=== PATIENT | male | born 1960 | race Caucasian/White ===

== ENCOUNTER 2020-12-08 01:24 | Outpatient (CLI) | payer OTHER, SELFPAY ==
[2020-12-08 19:22] LABS: SARS-CoV-2 RNA PCR Negative
== END 2020-12-08 01:25 | disposition home or self-care (01) ==
LOC: ANHCOVIDDT 01:24
PROVIDERS: PCP Internal Medicine; Visit Provider Internal Medicine Gastroenterology
DX: Z01.812 Encounter for preprocedural laboratory examination (principal); Z20.822 Contact with and (suspected) exposure to COVID-19
CPT/HCPCS: C9803; U0003; U0005

== ENCOUNTER 2020-12-11 02:34 | Day surgery (SDC) | payer OTHER, SELFPAY ==
[2020-12-03 11:11] VITALS: BMI 30.2
[2020-12-11 08:28] VITALS: BP 158/101; PULSE 83; RESP 20; TEMP 36.6; O2SAT 97; BMI 30.4
[2020-12-11] MEDS: LACTATED RINGERS 1,000 ML 150 ML IV CONT (08:45)
--- NOTE | 2020-12-11 09:00 | WPDANESEPPF ---
Anes - Initial Pre Proc Eval Procedure: Operation Date: 12/11/20 09:30 Proposed Procedures p Screening Colonoscopy - Noble Brown MD Date/Time: 12/11/20 09:00 Surgeon: Noble Brown MD Pre Op Diagnosis: neoplasm screening Patient Data Age: 60 Gender: M Height: 5 ft 6 in Weight: 85.5 kg Last Vital Signs Temp 97.9 F 12/11/20 08:28 Pulse 83 12/11/20 08:28 Resp 20 12/11/20 08:28 BP 158/101 H 12/11/20 08:28 Pulse Ox 97 12/11/20 08:28 Allergies Allergy/AdvReac Type Severity Reaction Status Date / Time No Known Allergies Allergy Verified 12/11/20 08:27 Home Medications Medication Instructions Recorded Confirmed Type syringe with needle 3 mL 25 gauge #100 each 11/06/19 11/25/20 Rx x 1 aspirin 81 mg tablet,delayed 81 mg PO DAILY 11/18/19 12/03/20 History release cholecalciferol (vitamin D3) 25 25 mcg PO DAILY 11/18/19 12/03/20 History mcg (1,000 unit) capsule vitamin B complex 1 tablet PO DAILY 11/18/19 12/03/20 History ascorbic acid (vitamin C) 1,000 mg 1 gm PO DAILY 04/06/20 12/03/20 History tablet losartan 50 mg tablet 50 mg PO DAILY #90 tablet 04/06/20 12/03/20 Rx testosterone cypionate 200 mg/mL 100 mg IM WEEKLY #2.5 ml 07/13/20 12/03/20 Rx intramuscular oil atorvastatin 10 mg tablet 10 mg PO DAILY #90 tablet 10/12/20 12/03/20 Rx sertraline 100 mg tablet 100 mg PO DAILY #90 tablet 10/12/20 12/03/20 Rx hydrochlorothiazide 12.5 mg capsule 12.5 mg PO DAILY #90 cap 10/19/20 12/03/20 Rx tamsulosin 0.4 mg capsule 0.4 mg PO DAILY #90 cap 11/25/20 12/03/20 Rx zolpidem 10 mg tablet 10 mg PO ONCE #30 tablet 11/25/20 12/03/20 Rx famotidine 20 mg tablet 20 mg PO BID #60 tablet 11/26/20 12/03/20 Rx Patient hx anesthesia problems: none Family hx anesthesia problems: none PMFSH Past Medical History Medical History (Updated 11/26/20 @ 08:43 by TOÑITO Yun) Chicken pox Hematochezia HLD (hyperlipidemia) HTN (hypertension) Long-term current use of testosterone cypionate Measles Testicular hypofunction Surgical History Surgical History (Updated 02/10/20 @ 10:27 by Tonia Newby) History of surgery on arm Family History Family History Mother Patient's mother is in good health Father Hypertension Social History Social History Smoking status: Never smoker Alcohol intake: current Drinks per week: 3 Substance use type: does not use Living arrangements: with family Spiritual care concerns: No Anes - Eval Final PreProcedure Day of Procedure 12/11/20 09:00 Patient weight: overweight Heart: regular rate and rhythm Lungs: clear to auscultation Airway: Mallampati scale class II Neurological: alert and oriented Last oral intake: >/= 8 hours ASA classification: II Emergent: no Anesthetic plan: proceed Anesthesia type and monitoring: general GIVS and standard monitoring Informed Consent: The patient's anesthetic plan and its attendant risks and benefits were discussed with the patient/family/POA. Questions were solicited and answers provided to the satisfaction of the patient/family/POA.
--- NOTE | 2020-12-11 09:42 | PM.HPGS ---
History of Present Illness History of Present Illness Consent: Risks, benefits, and alternatives have been discussed and questions answered. Patient agrees to proceed with procedure. Chief complaint: neoplasm screening Narrative: Michael Bearden is a 60 year old male here for screening colonoscopy, last one about 12 years ago. Review of Systems Constitutional: Constitutional: Denies headache(s) and Denies weakness Eyes: Eyes: Denies blurry vision ENT: Reports Normal hearing present, Denies headache(s) and Denies neck pain Cardiovascular: Cardiovascular: Denies chest pain and Denies dyspnea Respiratory: Respiratory: Denies dyspnea Gastrointestinal: Gastrointestinal: Reports no additional gastrointestinal complaints Genitourinary: Genitourinary: Denies dysuria Musculoskeletal: Musculoskeletal: Denies neck pain Integumentary/Breasts: Skin/Breast: Denies dry skin Neurologic: Reports Normal hearing present, Denies headache(s) and Denies weakness Psychiatric: Psychiatric: Denies anxiety Endocrine: Endocrine: Denies change in body appearance Hematologic/Lymphatic: Hematologic/Lymphatic: Denies easy bleeding Allergic/Immunologic: Allergic/Immunologic: Denies urticaria PMFSH Past Medical History Medical History (Updated 11/26/20 @ 08:43 by LEÓN YunP-C) Chicken pox Hematochezia HLD (hyperlipidemia) HTN (hypertension) Long-term current use of testosterone cypionate Measles Testicular hypofunction Surgical History Surgical History (Updated 02/10/20 @ 10:27 by Tonia Newby) History of surgery on arm Family History Family History Mother Patient's mother is in good health Father Hypertension Social History Social History Smoking status: Never smoker Alcohol intake: current Drinks per week: 3 Substance use type: does not use Living arrangements: with family Spiritual care concerns: No Meds Home Medications and Allergies Home Medications Medication Instructions Recorded Confirmed Type syringe with needle 3 mL 25 gauge #100 each 11/06/19 11/25/20 Rx x 1 aspirin 81 mg tablet,delayed 81 mg PO DAILY 11/18/19 12/03/20 History release cholecalciferol (vitamin D3) 25 25 mcg PO DAILY 11/18/19 12/03/20 History mcg (1,000 unit) capsule vitamin B complex 1 tablet PO DAILY 11/18/19 12/03/20 History ascorbic acid (vitamin C) 1,000 mg 1 gm PO DAILY 04/06/20 12/03/20 History tablet losartan 50 mg tablet 50 mg PO DAILY #90 tablet 04/06/20 12/03/20 Rx testosterone cypionate 200 mg/mL 100 mg IM WEEKLY #2.5 ml 07/13/20 12/03/20 Rx intramuscular oil atorvastatin 10 mg tablet 10 mg PO DAILY #90 tablet 10/12/20 12/03/20 Rx sertraline 100 mg tablet 100 mg PO DAILY #90 tablet 10/12/20 12/03/20 Rx hydrochlorothiazide 12.5 mg capsule 12.5 mg PO DAILY #90 cap 10/19/20 12/03/20 Rx tamsulosin 0.4 mg capsule 0.4 mg PO DAILY #90 cap 11/25/20 12/03/20 Rx zolpidem 10 mg tablet 10 mg PO ONCE #30 tablet 11/25/20 12/03/20 Rx famotidine 20 mg tablet 20 mg PO BID #60 tablet 11/26/20 12/03/20 Rx Allergies Allergy/AdvReac Type Severity Reaction Status Date / Time No Known Allergies Allergy Verified 12/11/20 08:27 Vital Signs Vital Signs - 24 hr 12/11/20 08:28 Temperature 97.9 F Pulse Rate 83 Respiratory Rate 20 Blood Pressure 158/101 H Pulse Oximetry 97 Exam Const: General: comfortable and no acute distress HENMT: General nose exam: Normal nares present Eyes: General: appearance normal, both eyes and all related structures Neck: Neck: no JVD Resp: Auscultation: clear to auscultation bilaterally Cardio: Rate: regular rate Rhythm: regular rhythm GI: Inspection: non-distended GI Palp: Yes Soft to palpation Skin: General skin exam: normal color Neuro: General: gait normal Speech: normal speech Extrem: General: normal to inspection Psych:
[2020-12-11 10:03] VITALS: BP 126/82; PULSE 71; RESP 14; O2SAT 97
[2020-12-11 10:13] VITALS: BP 122/87; PULSE 69; RESP 15; O2SAT 96
[2020-12-11 10:23] VITALS: BP 138/100; PULSE 66; RESP 15; O2SAT 97
== END 2020-12-11 10:35 | disposition home or self-care (01) ==
PROVIDERS: PCP Internal Medicine; Visit Provider Internal Medicine Gastroenterology
PROC: 0DJD8ZZ Inspection of Lower Intestinal Tract, Via Natural or Artificial Opening Endoscopic (ICD-10-PCS; CPT 45378; principal; 2020-12-11 09:30)
DX: Z12.11 Encounter for screening for malignant neoplasm of colon (principal); K57.30 Diverticulosis of large intestine without perforation or abscess without bleeding; K64.8 Other hemorrhoids; Z79.82 Long term (current) use of aspirin; K92.1 Melena; E78.5 Hyperlipidemia, unspecified; I10 Essential (primary) hypertension; Z79.890 Hormone replacement therapy
CPT/HCPCS: 45378; C9803; J2704; J7120; U0003; U0005

== ENCOUNTER 2021-04-06 18:52 | Emergency (ER) | payer OTHER, SELFPAY ==
--- NOTE | ~2021-04-06 | CT_ITS ---
EXAMINATION: CT abdomen pelvis w con EXAM DATE: 04/06/2021 21:29 INDICATION: abdominal pain, fever, n/v/d . TECHNIQUE: Spiral CT of the abdomen and pelvis was performed following intravenous injection of 100 m L Omnipaque 350. Axial, coronal and sagittal images of the abdomen and pelvis were reviewed. The do se-length product (DLP) for this examination was 587.75 mGy-cm. The exposure was tailored according to patient size (auto mA exposure control), and iterative reconstruction (ASIR) was used as additiona l dose reduction technique. There is no prior study for comparison. FINDINGS: The liver, spleen, adrenal glands and pancreas are unremarkable. Gallbladder is unremarkab le. No biliary obstruction. Portal and splenic veins are patent. Kidneys enhance symmetrically. T here is no hydronephrosis. Mild prostatomegaly. The bladder is unremarkable. There is no retroper itoneal or pelvic lymphadenopathy. There is mild scattered arteriosclerotic disease. Small umbilica l fat-containing hernia. The appendix is normal. There is mild to moderate sigmoid predominant colonic diverticulosis. There is no adjacent inflammatory change to suggest diverticulitis. There is small sliding gastroesophageal hiatal hernia. There is expected amount of colonic stool. No free intraperitoneal gas. The hear t is normal in size. There are no pericardial or pleural effusions. The lung bases are unremarkable . There are no osteoblastic or osteolytic lesions identified. IMPRESSION: 1. No acute intra-abdominal findings. 2. Small hiatal hernia. 3. Small umbilical hernia. 4. Mild prostatomegaly. Reviewed, dictated and finalized at location A.
[2021-04-06 19:04] VITALS: BP 126/104; PULSE 125; RESP 18; TEMP 37.2; O2SAT 95
[2021-04-06 19:16] LABS: Basophils Percent Auto 0.3 % (0.2-1.2); Eosinophils Absolute Auto 0.1 K/mm3 (0-0.3); Eosinophils Percent Auto 1.1 % (0-4.4); Hematocrit 48.4 % (42.0-52.0); Hemoglobin 16.8 g/dL (14.0-18.0); Immature Granulocyte Absolute 0.02 K/mm3 (0.00-0.031); Immature Granulocyte Percent A 0.2 % (0-0.5); Lymphocytes Absolute Auto 1.09 K/mm3 (0.9-3.2); Lymphocytes Percent Auto 9.5 % (18.3-44.2); Mean Corpuscular HGB Conc 34.7 g/dl (32-36); Mean Corpuscular Hemoglobin 31.4 pg (26-34); Mean Corpuscular Volume 90.5 fl (80-100); Mean Platelet Volume 9.1 fl (7.4-10.4); Monocytes Absolute Auto 0.9 K/mm3 (0.1-0.6); Monocytes Percent Auto 7.4 % (2.6-8.5); Neutrophils Absolute Auto 9.4 K/mm3 (1.3-6.7); Neutrophils Percent Auto 81.5 % (45.5-73.1); Platelet Count Result 253 k/mm3 (150-375); Red Blood Count 5.35 M/mm3 (4.6-6.20); Red Cell Distribution Width 12.2 % (11.5-14.5); White Blood Count 11.5 K/mm3 (4.5-10.0)
[2021-04-06 19:25] LABS: Alanine Aminotransferase 25 U/L (4-50); Albumin Level 4.2 g/dL (3.5-5.1); Alkaline Phosphatase 51 U/L (38-126); Anion Gap 9 mmol/L (8-16); Aspartate Amino Transferase 28 U/L (17-59); Blood Urea Nitrogen 16 mg/dL (9-20); Carbon Dioxide 28 mmol/L (22-30); Chloride 102 mmol/L (98-107); Estimated CRCL calculation 53 ml/min; Estimated Glomerular Filt Rate 56; Glucose 103 mg/dL (75-110); Lipase 39 U/L (23-300); Potassium 3.8 mmol/L (3.4-5.0); Sodium 139 mmol/L (137-145)
[2021-04-06 20:23] VITALS: PULSE 104
--- NOTE | 2021-04-06 20:35 | ED.NAVMDI ---
HPI - Nausea/Vomiting/Diarrhea General Chief complaint: Nausea/Vomiting/Diarrhea Stated complaint: vomiting, diarrhea Time Seen by Provider: 04/06/21 20:17 Source: patient Mode of arrival: ambulatory Limitations: no limitations History of Present Illness HPI Narrative: Dhara is a 61 year old male who presents with abdominal pain, nausea, vomiting, diarrhe, fever and chills x 1 day. He reports no exposure to Covid and Pfizer vaccine x 2. He denies chest pain, cough, or shortness of breath. He reports unable to keep down food or fluids . He denies significant medical history. He denies taking otc medications for relief. MD elicited complaint: nausea, vomiting, diarrhea and abdominal pain Related Data Home Medications Medication Instructions Recorded Confirmed aspirin 81 mg tablet,delayed 81 mg PO DAILY 11/18/19 03/01/21 release cholecalciferol (vitamin D3) 25 25 mcg PO DAILY 11/18/19 03/01/21 mcg (1,000 unit) capsule vitamin B complex 1 tablet PO DAILY 11/18/19 03/01/21 ascorbic acid (vitamin C) 1,000 mg 1 gm PO DAILY 04/06/20 03/01/21 tablet tadalafil 5 mg tablet 5 mg PO DAILY 03/01/21 03/01/21 Allergies Allergy/AdvReac Type Severity Reaction Status Date / Time No Known Allergies Allergy Verified 12/11/20 08:27 Review of Systems Review of Systems: Narrative: CONSTITUTIONAL: Denies fever, chills, or sweats. EYES: Denies visual changes, redness, or discharge. ENT: Denies rhinorrhea, congestion, sore throat, or otalgia. CARDIOVASCULAR: Denies chest pain, palpitations, or edema. RESPIRATORY: Denies cough or dyspnea. GASTROINTESTINAL: Reports abdominal pain, nausea, vomiting, and diarrhea. GENITOURINARY: Denies dysuria or hematuria. SKIN: Denies rash or itching. MUSCULOSKELETAL: Denies back pain, joint pain, or myalgia. NEUROLOGIC: Denies headache, numbness, dizziness, or weakness. PSYCHIATRIC: Denies anxiety or depression. [facility] Past Medical History Medical History Chicken pox Hematochezia HLD (hyperlipidemia) HTN (hypertension) Long-term current use of testosterone cypionate Measles Testicular hypofunction Surgical History Surgical History History of surgery on arm Family History Family History Mother Patient's mother is in good health Father Hypertension Social History Social History Smoking status: Never smoker Alcohol intake: current Drinks per week: 3 Substance use type: does not use Gender identity (if verbalized by the patient): Male Spiritual care concerns: No Comments At the time of signature, I have reviewed and agree with nursing past medical, surgical, social, and family history unless otherwise noted. Please see nursing chart for further information. There is no relevant family history pertinent to the presenting complaint. Exam Narrative: Exam Narrative: GENERAL:Ill appearing and uncomfortable HEAD: Normocephalic, atraumatic. EYES: EOMI. No redness or drainage. ENT: Mucous membranes pink and moist. NECK: AROM. Supple. No lymphadenopathy. CHEST: No respiratory distress. Clear to auscultation. HEART: Regular rate and rhythm. No murmur appreciated. Normal peripheral pulses. GI: Soft, nontender without rebound, or guarding. No distention. Bowel sounds normal in all quadrants. MUSCULOSKELETAL: No bony tenderness. EXTREMITIES: Normal range of motion. No edema. SKIN: Warm, dry, no rash. NEURO: No focal deficits. Alert and oriented x3. Gait steady. PSYCH: Normal affect. No signs of depression or anxiety. Course Reevaluation(s) Reevaluation #1: Patient reports he is feeling much better at this time. Denies nausea. VSS. Patient requesting discharge. Date: 04/06/21 Time: 21:55 Vital Signs Vital signs: Vital Signs Temperature 37.2
[2021-04-06 20:40] VITALS: PULSE 91; RESP 14
[2021-04-06] MEDS: SODIUM CHLORIDE 0.9% IV 1,000 ML 999 ML IV CONT (20:43)
[2021-04-06] MEDS: ONDANSETRON INJ 4 MG/2 ML VIAL IV PUSH (20:43)
[2021-04-06 21:09] VITALS: PULSE 97; RESP 20
--- NOTE | 2021-04-06 21:16 | PC.NURSE ---
patient reminded that urine specimen was needed. refused straight cath. urinal at bedside
[2021-04-06 21:30] VITALS: BP 138/78; PULSE 93; RESP 14; O2SAT 98
[2021-04-06 21:52] LABS: Add Urine Microscopic? YES; Amorphous Sediment Urine Few; Appearance Urine Cloudy (Clear); Bacteria Urine Trace /hpf; Bilirubin Urine Negative (Negative); Blood Urine Negative (Negative); Color Urine Amber (Yellow); Glucose Urine UA Negative (Negative); Ketones Urine Negative (Negative); Leukocyte Esterase Ur Negative LEU/UL (Negative); Mucus Urine Rare /lpf; Nitrate Urine Negative (Negative); Protein Urine 1+ mg/dL (Negative); RBC Urine 0-2 /hpf (0-2); Specific Grav Ur 1.027 (1.001-1.035); Squamous Epithelial Cell Urine Rare /hpf (Few); WBC Urine 0-3 /hpf
[2021-04-06 22:09] VITALS: BP 112/78; PULSE 80; RESP 18; O2SAT 99
== END 2021-04-06 22:10 | disposition home or self-care (01) ==
PROVIDERS: Emergency Medicine; Emergency Provider Nurse Practitioner; PCP Internal Medicine
DX: R11.2 Nausea with vomiting, unspecified (principal); R19.7 Diarrhea, unspecified; E78.5 Hyperlipidemia, unspecified; I10 Essential (primary) hypertension; E29.1 Testicular hypofunction; Z79.82 Long term (current) use of aspirin
CPT/HCPCS: 36415; 74177; 80053; 81001; 83690; 85025; 96361; 96374; 99284; J2405; J7030; Q9967

== ENCOUNTER 2021-10-07 11:05 | Outpatient (CLI) | payer OTHER, SELFPAY ==
--- NOTE | ~2021-10-07 | XR_ITS ---
EXAMINATION: XR chest 2V 10/07/2021 11:16 INDICATION: Cardiomegaly. CHF. PROCEDURE: 2 view chest COMPARISON: No prior studies for comparison. FINDINGS: The lungs are clear. The cardiomediastinal silhouette is within normal limits. There are no pleural effusions. There is no pneumothorax suspected. Low lung volumes with crowding of the pul monary vessels. IMPRESSION: 1: NO ACUTE CARDIOPULMONARY DISEASE. Reviewed, dictated and finalized at location A. 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
== END 2021-10-07 11:06 | disposition home or self-care (01) ==
LOC: ANHIMG 11:09
PROVIDERS: PCP Internal Medicine; Visit Provider Clinical Nurse Specialist
DX: I51.7 Cardiomegaly (principal)
CPT/HCPCS: 71046

== ENCOUNTER 2022-02-04 15:52 | Outpatient (CLI) | payer OTHER, SELFPAY ==
--- NOTE | ~2022-02-04 | US_ITS ---
EXAMINATION: US carotid duplex BI DATE: 02/04/2022 16:39 INDICATION: Stroke TECHNIQUE: Grayscale, color Doppler, and pulsed Doppler images of the cervical carotid arteries were obtained. The degree of vessel stenosis is placed in one of the following categories: normal, <50%, 5 0-69%, >=70% but less than near-occlusion, near-occlusion, or total occlusion. Note that percent sten osis relative to normal distal artery lumen diameter is indirectly measured from velocity measurement s as described by Jose Luis, et al. Radiology 2003; 229:340-346. COMPARISON: None. FINDINGS: RIGHT: The right common carotid artery (CCA) peak systolic velocity (PSV) is 92 cm/s. The right internal car otid artery (ICA) PSV is 73 cm/s. The right ICA end-diastolic velocity (EDV) is 25 cm/s. The right IC A/CCA PSV ratio is 0.8. Grayscale and color Doppler images yield an estimate of <50% diameter reducti on from plaque in the ICA. The external carotid artery (ECA) PSV is 133 cm/s. There is antegrade flow in the right vertebral artery. LEFT: The left CCA PSV is 113 cm/s. The left ICA PSV is 54 cm/s. The left ICA EDV is 25 cm/s. The left ICA/ CCA PSV ratio is 0.5. Grayscale and color Doppler images yield an estimate of <50% diameter reduction from plaque in the ICA. The ECA PSV is 100 cm/s. There is antegrade flow in the left vertebral arter y. IMPRESSION: 1. <50% stenosis in the right internal carotid artery. 2. <50% stenosis in the left internal carotid artery. Reviewed, dictated and finalized at location A. 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
== END 2022-02-04 15:53 | disposition home or self-care (01) ==
PROVIDERS: PCP Internal Medicine; Visit Provider Internal Medicine Cardiovascular Disease
DX: Z86.73 Personal history of transient ischemic attack (TIA), and cerebral infarction without residual deficits (principal); I65.23 Occlusion and stenosis of bilateral carotid arteries
CPT/HCPCS: 93880

== ENCOUNTER 2022-04-09 10:07 | Emergency (ER) | payer OTHER, SELFPAY ==
--- NOTE | 2022-04-09 10:10 | ED.GENADULT ---
HPI - General Adult General Chief complaint: Upper Respiratory Infection Stated complaint: congestion Time Seen by Provider: 04/09/22 10:10 Source: patient Mode of arrival: ambulatory Limitations: no limitations History of Present Illness HPI narrative: 62-year-old male patient presents to the [facility] with complaints of nasal congestion, runny nose and a cough for the past 6 days. Patient states that happen whenever he went over to his sister's house and she is got some issues with mold. Patient states he has been taking some [id number] Claritin and cough drops. Denies fevers, body aches or chills. Denies any chest pain, shortness of breath. Patient is fully vaccinated but is refusing a COVID test today. Patient states he is getting ready to travel to [place]. Related Data Home Medications Medication Instructions Recorded Confirmed aspirin 81 mg tablet,delayed 81 mg PO DAILY 11/18/19 01/24/22 release cholecalciferol (vitamin D3) 25 25 mcg PO DAILY 11/18/19 01/24/22 mcg (1,000 unit) capsule vitamin B complex 1 tablet PO DAILY 11/18/19 01/24/22 ascorbic acid (vitamin C) 1,000 mg 1 gm PO DAILY 04/06/20 01/24/22 tablet tadalafil 5 mg tablet 5 mg PO DAILY 03/01/21 01/24/22 Allergies Allergy/AdvReac Type Severity Reaction Status Date / Time No Known Allergies Allergy Verified 04/09/22 10:26 Review of Systems Review of Systems: CONSTITUTIONAL: Denies fever, chills, or sweats. EYES: Denies visual changes, redness, or discharge. ENT: Positive rhinorrhea, congestion, denies sore throat, or otalgia. CARDIOVASCULAR: Denies chest pain, palpitations, or edema. RESPIRATORY: Positive cough, denies dyspnea. GASTROINTESTINAL: Denies abdominal pain, nausea, vomiting, or diarrhea. GENITOURINARY: Denies dysuria or hematuria. SKIN: Denies rash or itching. MUSCULOSKELETAL: Denies back pain, joint pain, or myalgia. NEUROLOGIC: Denies headache, numbness, or weakness. PSYCHIATRIC: Denies anxiety or depression. [facility] Past Medical History Medical History Chicken pox Grade II diastolic dysfunction Hematochezia HLD (hyperlipidemia) HTN (hypertension) Long-term current use of testosterone cypionate Measles Testicular hypofunction Surgical History Surgical History History of surgery on arm Family History Family History Mother Patient's mother is in good health Father Hypertension Social History Social History Smoking status: Never smoker Alcohol intake: current Drinks per week: 3 Alcohol use details: occasional Substance use type: does not use Gender identity (if verbalized by the patient): Male Spiritual care concerns: No Comments At the time of my signature I agree with nursing past medical history, surgical, social, and family history. There is no relevant family history pertinent to the presenting complaint. Exam Narrative: GENERAL: Well-appearing, well-nourished, and in no acute distress. HEAD: Normocephalic, atraumatic. EYES: PERRLA and EOMI. ENT: Nares with slight erythema and edema no obstruction, no rhinorrhea or epistaxis. Mucous membranes moist. Posterior pharynx with no erythema, tonsillar lodgment, exudates or lesions present. There is some fluid and cloudiness noted behind bilateral TMs NECK: Supple. No lymphadenopathy CHEST: Clear to auscultation. No respiratory distress. Patient able talk in clear complete sentences. HEART: Regular rate and rhythm. No murmur heard. Normal peripheral pulses. ABDOMEN: Soft, nontender, nondistended, normal active bowel sounds. EXTREMITIES: Normal range of motion. No edema. SKIN: Warm, dry, no rash. NEURO: No focal deficits. Alert and oriented x3. Course Course Level of Care: Express Care Visit Vital Signs Vital signs:
[2022-04-09 10:20] VITALS: BP 123/74; PULSE 86; RESP 16; TEMP 36.2; O2SAT 97
== END 2022-04-09 11:04 | disposition home or self-care (01) ==
PROVIDERS: Emergency Provider Nurse Practitioner Family; PCP Internal Medicine
DX: J01.90 Acute sinusitis, unspecified (principal); E78.5 Hyperlipidemia, unspecified; I10 Essential (primary) hypertension
CPT/HCPCS: 99213; G0463

== ENCOUNTER → 2022-07-13 15:55 | Outpatient (CLI) | payer OTHER, SELFPAY ==
--- NOTE | ~2022-07-13 | XR_ITS ---
EXAMINATION: XR shoulder LT min 2V INDICATION: Left shoulder pain TECHNIQUE: Four views of the left shoulder are submitted. COMPARISON: None FINDINGS: Normal alignment. No fracture. There is moderate osteoarthritis of the acromioclavicular jose int and mild osteoarthritis of the glenohumeral joint. Soft tissues are unremarkable. IMPRESSION: 1. Osteoarthritis without acute osseous abnormality. Reviewed, dictated and finalized at location A.
== END ==
PROVIDERS: PCP Clinical Nurse Specialist; Visit Provider Clinical Nurse Specialist
DX: M19.012 Primary osteoarthritis, left shoulder (principal)
CPT/HCPCS: 73030

== ENCOUNTER 2022-07-13 16:11 | Outpatient (CLI) | payer OTHER, SELFPAY | END 2022-07-13 16:12 | disposition home or self-care (01) | LOC: ANHGOSHLAB 16:12 | PROVIDERS: PCP Clinical Nurse Specialist; Visit Provider Clinical Nurse Specialist | DX: R79.0 Abnormal level of blood mineral (principal) | CPT/HCPCS: 36415; 73030; 82728 ==

== ENCOUNTER → 2022-07-29 11:14 | Outpatient (CLI) | payer OTHER, SELFPAY ==
--- NOTE | ~2022-07-29 | US_ITS ---
EXAMINATION: US right upper quadrant DATE: 07/29/2022 11:46 INDICATION: Right upper quadrant pain TECHNIQUE: Multiple grayscale and Doppler ultrasound images of the abdomen were obtained. COMPARISON: CT, 04/06/2021 FINDINGS: The head and body of the pancreas are normal. The pancreatic tail is obscured by bowel gas. The liver is normal with normal echogenicity and echotexture. No surface nodularity. Normal hepatope luis armando flow in the main portal vein. The gallbladder is normal with no abnormal wall thickening, pericho lecystic fluid or stones. The normal common bile duct measures 2.5 mm. There was no sonographic Mayank y sign. IMPRESSION: 1. Normal sonographic study of the gallbladder. Reviewed, dictated and finalized at location A.
== END ==
PROVIDERS: PCP Internal Medicine; Visit Provider Clinical Nurse Specialist
DX: R10.11 Right upper quadrant pain (principal)
CPT/HCPCS: 76705

== ENCOUNTER 2022-08-15 07:35 | Outpatient (CLI) | payer OTHER, SELFPAY ==
--- NOTE | ~2022-08-15 | NM_ITS ---
EXAMINATION: NM hepatobiliary w pharm DATE: 08/15/2022 10:12 INDICATION: Right upper quadrant abdominal pain. COMPARISON: Ultrasound 07/29/2022 TECHNIQUE: 4.9 mCi Tc-99m mebrofenin (Choletec) was administered intravenously. Scintigraphic images of the abdomen were obtained for one hour. Then, 1.75 mcg sincalide (Kinevac) IV was administered, a nd imaging was continued for 30 minutes. FINDINGS: There is normal clearance of radiotracer from the blood pool. There is homogeneous tracer u ptake by the liver. Activity progresses to the bowel and gallbladder. Gallbladder ejection fraction (GBEF) was 49%. Note that most patients with gallbladder dysfunction have GBEF < 35%, which overlaps with the broad normal range of 10-90%. IMPRESSION: 1. Normal hepatobiliary scintigraphy. Reviewed, dictated and finalized at location A.
== END 2022-08-15 07:36 | disposition home or self-care (01) ==
PROVIDERS: PCP Internal Medicine; Visit Provider Clinical Nurse Specialist
DX: R10.11 Right upper quadrant pain (principal)
CPT/HCPCS: 78227; A9537; J2805

== ENCOUNTER → 2023-01-13 08:12 | Outpatient (CLI) | payer OTHER, SELFPAY ==
--- NOTE | ~2023-01-13 | XR_ITS ---
EXAMINATION: XR ankle LT min 3V DATE: 01/13/2023 08:33 INDICATION: Left ankle pain TECHNIQUE: Anteroposterior, lateral, mortise, and additional oblique view of the ankle were obtained. COMPARISON: None. FINDINGS: Bone alignment is normal. No fracture is identified. There is moderate osteoarthritis at th e talofibular joint. Posterior and plantar calcaneal enthesophytes are noted. There is mild soft tiss ue swelling of ankle. IMPRESSION: 1. No acute osseous abnormality. Reviewed, dictated and finalized at location B. 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
--- NOTE | ~2023-01-13 | XR_ITS ---
EXAMINATION: XR knee LT 2V DATE: 01/13/2023 08:33 INDICATION: Left knee pain TECHNIQUE: Two views of the left knee were obtained. COMPARISON: None. FINDINGS: Alignment is normal. No fracture or osteochondral lesion. There is mild tricompartmental os teoarthritis characterized by tiny marginal osteophytes. No joint effusion/synovitis. Soft tissues a re unremarkable. IMPRESSION: 1. Mild osteoarthritis without acute osseous abnormality. Reviewed, dictated and finalized at location B. 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
== END ==
PROVIDERS: PCP Clinical Nurse Specialist; Visit Provider Clinical Nurse Specialist
DX: M25.569 Pain in unspecified knee (principal); S99.919A Unspecified injury of unspecified ankle, initial encounter; M25.572 Pain in left ankle and joints of left foot; M17.12 Unilateral primary osteoarthritis, left knee
CPT/HCPCS: 73560; 73610

== ENCOUNTER 2023-02-21 11:03 | Emergency (ER) | payer OTHER, SELFPAY ==
[2023-02-21 11:10] VITALS: BP 145/94; PULSE 87; RESP 16; TEMP 36.7; O2SAT 97
--- NOTE | 2023-02-21 11:25 | ED.URI ---
HPI - URI/Sore Throat General Chief Complaint: Upper Respiratory Infection Stated Complaint: congestion,ear pain Time Seen by Provider: 02/21/23 11:22 Source: patient Mode of arrival: ambulatory Limitations: no limitations History of Present Illness HPI Narrative: Patient is a 63-year-old male that presents with congestion, sneezing, ear pressure for 3 days. Denies any fever, sore throat, cough. Has taken Aleve with no relief. Does not take any allergy medication daily. Reports symptoms are worse at night and he is now breathing out of his mouth and has dry mouth throughout the night. Related Data Home Medications Medication Instructions Recorded Confirmed aspirin 81 mg tablet,delayed 81 mg PO DAILY 11/18/19 02/21/23 release (Adult Low Dose Aspirin) cholecalciferol (vitamin D3) 25 25 mcg PO DAILY 11/18/19 02/21/23 mcg (1,000 unit) capsule vitamin B complex 1 tablet PO DAILY 11/18/19 02/21/23 ascorbic acid (vitamin C) 1,000 mg 1 gm PO DAILY 04/06/20 02/21/23 tablet zinc citrate 11 mg chewable tablet 11 mg PO DAILY 07/13/22 02/21/23 atorvastatin 40 mg tablet 40 mg PO DAILY 02/21/23 02/21/23 Allergies Allergy/AdvReac Type Severity Reaction Status Date / Time No Known Allergies Allergy Verified 02/21/23 11:08 Review of Systems Review of Systems: All systems reviewed & are unremarkable except as noted in HPI and below Constitutional: Constitutional: Denies body ache(s), Denies fever(s), Denies headache(s), Denies malaise and Denies weakness Eyes: Eyes: Denies loss of vision ENT: Denies otalgia, Reports headache(s), Reports nasal congestion, Reports nasal discharge, Denies sinus pain and Denies sore throat Cardiovascular: Cardiovascular: Denies chest pain, Denies irregular heart rhythm and Denies dyspnea Respiratory: Respiratory: Denies cough and Denies dyspnea Gastrointestinal: Gastrointestinal: Denies abdominal pain, Denies melena, Denies hematochezia, Denies diarrhea, Denies nausea and Denies vomiting Musculoskeletal: Musculoskeletal: Denies back pain, Denies myalgias and Denies arthralgias Integumentary/Breasts: Skin/Breast: Denies pruritus and Denies rash Neurologic: Denies headache(s), Denies loss of vision and Denies weakness Psychiatric: Psychiatric: Reports no additional psychiatric complaints PMFSH Past Medical History Medical History Chicken pox Grade II diastolic dysfunction Hematochezia HLD (hyperlipidemia) HTN (hypertension) Long-term current use of testosterone cypionate Measles Testicular hypofunction Surgical History Surgical History History of surgery on arm Family History Family History Mother Patient's mother is in good health Father Hypertension Social History Social History (Updated 01/13/23 @ 07:47 by Delicia Ponce [facility]) Smoking status: Never smoker Alcohol intake: current Drinks per week: 3 Alcohol use details: occasional Substance use type: does not use Lack of Transportation: No Lack of Food: Never True Current Housing: I Have Housing Concerned About Future Housing: Decline to Answer Difficulty Paying Gas/Electric Bills: Decline to Answer Difficulty Paying for Meds: Decline to Answer Currently Unemployed: Decline to Answer Education: Decline to Answer Difficulty w/ Childcare or Family Care: Decline to Answer Living arrangements: with family Gender identity (if verbalized by the patient): Male Spiritual care concerns: No Comments At time of signature, agree with nursing past medical, surgical, social and family history. There is no relevant family history pertinent to the presenting complaint. Exam Const: General: cooperative, healthy appearing, comfortable, no acute distress and well nourished Nutritional Appearance: well nourished Orientation/conscious
== END 2023-02-21 11:38 | disposition home or self-care (01) ==
PROVIDERS: Emergency Provider Nurse Practitioner Family; PCP Internal Medicine
DX: J06.9 Acute upper respiratory infection, unspecified (principal); E78.5 Hyperlipidemia, unspecified; I10 Essential (primary) hypertension
CPT/HCPCS: 99212; G0463

== ENCOUNTER 2023-05-09 15:38 | Outpatient (CLI) | payer OTHER, SELFPAY ==
[2023-05-09 17:34] LABS: Hemoglobin A1C 5.1 % (<5.7)
== END 2023-05-09 15:39 | disposition home or self-care (01) ==
LOC: ANHGOSHLAB 15:39
PROVIDERS: PCP Internal Medicine; Visit Provider Internal Medicine
DX: R73.9 Hyperglycemia, unspecified (principal)
CPT/HCPCS: 36415; 83036

== ENCOUNTER 2023-05-28 08:37 | Emergency (ER) | payer OTHER, MEDICARE, SELFPAY ==
[2023-05-28 08:47] VITALS: BP 165/104; PULSE 74; RESP 16; TEMP 36.5; O2SAT 99
--- NOTE | 2023-05-28 08:50 | ED.WOUNDLAC ---
HPI - Wound/Laceration General Chief Complaint: Wound/Laceration Stated Complaint: INJURED L FOOT Time Seen by Provider: 05/28/23 08:50 Source: patient, family, RN notes reviewed and old records reviewed Mode of arrival: ambulatory Limitations: no limitations History of Present Illness HPI narrative: 63 year old male accompanied by spouse with complaints of stepping on tent stake in yard yesterday at around 1600 with laceration noted between tissue of 1st and 2nd toe of left foot which measures 3cm in length linear with 0.5cm depth in mid area. Patient reports that his tetanus was from 2019 so within past 4 years. Patient reports pain to area and big toe, small amount of bleeding present patient reports that he washed wound with peroxide last evening after injury,has not taken any OTC medications is wearing open toe flip flops on arrival to clinic. Onset (ago): day(s) (1600 yesterday) Location: other (left foot) Place: outdoors Patient tetanus UTD: Yes Treatments prior to arrival: other (washed wound with peroxide) Related Data Home Medications Medication Instructions Recorded Confirmed aspirin 81 mg tablet,delayed 81 mg PO DAILY 11/18/19 05/28/23 release (Adult Low Dose Aspirin) cholecalciferol (vitamin D3) 25 25 mcg PO DAILY 11/18/19 05/28/23 mcg (1,000 unit) capsule vitamin B complex 1 tablet PO DAILY 11/18/19 05/28/23 ascorbic acid (vitamin C) 1,000 mg 1 gm PO DAILY 04/06/20 05/28/23 tablet zinc citrate 11 mg chewable tablet 11 mg PO DAILY 07/13/22 05/28/23 atorvastatin 40 mg tablet 40 mg PO DAILY 02/21/23 05/28/23 Allergies Allergy/AdvReac Type Severity Reaction Status Date / Time No Known Allergies Allergy Verified 05/28/23 08:44 Review of Systems Review of Systems: CONSTITUTIONAL: Denies fever, chills, or sweats. CARDIOVASCULAR: Denies chest pain, palpitations, or edema. RESPIRATORY: Denies cough or dyspnea. SKIN: Reports stepped on tent stake last evening around 1600 and cut area between his left 1st and 2nd toe requiring suture repair small amount of bleeding present. MUSCULOSKELETAL: Denies musculoskeletal pain NEUROLOGIC: Denies numbness, or weakness. All systems reviewed & are unremarkable except as noted in HPI and below PMFSH Past Medical History Medical History (Updated 05/28/23 @ 10:22 by Ginger Bradshaw NP) Chicken pox Gout Grade II diastolic dysfunction Hematochezia HLD (hyperlipidemia) HTN (hypertension) Long-term current use of testosterone cypionate Measles Testicular hypofunction Surgical History Surgical History (Updated 05/28/23 @ 10:13 by Ginger Bradshaw NP) History of nasal surgery nasal septal surgery History of surgery on arm History of tonsillectomy Family History Family History Mother Patient's mother is in good health Father Hypertension Social History Social History Smoking status: Never smoker Alcohol intake: current Drinks per week: 3 Alcohol use details: occasional Substance use type: does not use Lack of Transportation: No Lack of Food: Never True Current Housing: I Have Housing Concerned About Future Housing: Decline to Answer Difficulty Paying Gas/Electric Bills: Decline to Answer Difficulty Paying for Meds: Decline to Answer Currently Unemployed: Decline to Answer Education: Decline to Answer Difficulty w/ Childcare or Family Care: Decline to Answer Living arrangements: with family Gender identity (if verbalized by the patient): Male Spiritual care concerns: No Comments At time of signature, agree with nursing past medical, surgical, social and family history. There is no relevant family history pertinent to the presenting complaint Exam Narrative: GENERAL: Well-appearing, well-nourished, and in no acute distress. HEAD: Normocephalic, atraumatic. NECK: Supple.no lymphadenopathy TETE
[2023-05-28] MEDS: LIDOCAINE HCL 1% LOCAL INJ 2 ML AMPUL 4 ML INFILTRATE (09:08)
[2023-05-28] MEDS: LIDOCAINE HCL 1% LOCAL INJ 2 ML AMPUL 6 ML INFILTRATE (09:16)
== END 2023-05-28 09:59 | disposition home or self-care (01) ==
PROVIDERS: Emergency Provider Registered Nurse; PCP Internal Medicine
DX: S91.312A Laceration without foreign body, left foot, initial encounter (principal); W22.8XXA Striking against or struck by other objects, initial encounter; M10.9 Gout, unspecified; E78.5 Hyperlipidemia, unspecified; I10 Essential (primary) hypertension; Z79.82 Long term (current) use of aspirin
CPT/HCPCS: 12002; 99213; G0463

== ENCOUNTER 2024-03-24 10:16 | Emergency (ER) | payer MEDICARE, SELFPAY ==
--- NOTE | 2024-03-24 10:24 | ED.GENADULT ---
HPI - General Adult General Chief complaint: Upper Respiratory Infection Stated complaint: Sinus Infection Symptoms Time Seen by Provider: 03/24/24 10:24 Source: patient Mode of arrival: ambulatory Limitations: no limitations History of Present Illness HPI narrative: 64-year-old male patient presents to the [facility] with complaints of nasal congestion x4 days. Patient states he has had some postnasal drip to the back the throat denies fevers, body aches or chills. Denies any chest pain or shortness of breath. Denies any abdominal pain, nausea, vomiting or diarrhea. Patient states he has been using [id number] Sudafed and Mucinex for the symptoms. Related Data Home Medications Medication Instructions Recorded Confirmed aspirin 81 mg tablet,delayed 81 mg PO DAILY 11/18/19 03/24/24 release (Adult Low Dose Aspirin) cholecalciferol (vitamin D3) 25 25 mcg PO DAILY 11/18/19 03/24/24 mcg (1,000 unit) capsule vitamin B complex 1 tablet PO DAILY 11/18/19 03/24/24 ascorbic acid (vitamin C) 1,000 mg 1 gm PO DAILY 04/06/20 03/24/24 tablet tadalafil 20 mg tablet 20 mg PO DAILY 08/02/23 03/24/24 Allergies Allergy/AdvReac Type Severity Reaction Status Date / Time No Known Allergies Allergy Verified 03/24/24 10:36 Review of Systems Review of Systems: CONSTITUTIONAL: Denies fever, chills, or sweats. EYES: Denies visual changes, redness, or discharge. ENT: Denies rhinorrhea, Positive nasal congestion, denies sore throat, or otalgia. CARDIOVASCULAR: Denies chest pain, palpitations, or edema. RESPIRATORY: Denies cough or dyspnea. GASTROINTESTINAL: Denies abdominal pain, nausea, vomiting, or diarrhea. GENITOURINARY: Denies dysuria or hematuria. SKIN: Denies rash or itching. MUSCULOSKELETAL: Denies back pain, joint pain, or myalgia. NEUROLOGIC: Denies headache, numbness, or weakness. PSYCHIATRIC: Denies anxiety or depression. [facility] Past Medical History Medical History Chicken pox Gout Grade II diastolic dysfunction Hematochezia HLD (hyperlipidemia) HTN (hypertension) Long-term current use of testosterone cypionate Measles Testicular hypofunction Surgical History Surgical History History of nasal surgery nasal septal surgery History of surgery on arm History of tonsillectomy Family History Family History Mother Patient's mother is in good health Father Hypertension Other H/O aortic valve replacement Heart disease Social History Social History Smoking status: Never smoker Alcohol intake: current Drinks per week: 3 Alcohol use details: occasional Substance use type: does not use Lack of Transportation: No Lack of Food: Never True Current Housing: Decline to Answer Concerned About Future Housing: Decline to Answer Difficulty Paying Gas/Electric Bills: Decline to Answer Difficulty Paying for Meds: Decline to Answer Currently Unemployed: Decline to Answer Education: Decline to Answer Difficulty w/ Childcare or Family Care: Decline to Answer Living arrangements: with family Gender identity (if verbalized by the patient): Male Spiritual care concerns: No Comments At the time of my signature I agree with nursing past medical history, surgical, social, and family history. There is no relevant family history pertinent to the presenting complaint. Exam Narrative: GENERAL: Well-appearing, well-nourished, and in no acute distress. HEAD: Normocephalic, atraumatic. EYES: PERRLA and EOMI. ENT: Nares with erythema edema noted bilaterally, no rhinorrhea or epistaxis. Mucous membranes moist. some postnasal drip noted to the posterior pharynx. No erythema, tonsillar enlargement, exudates or lesions present. Bilateral TMs are clear no latoya
[2024-03-24 10:26] VITALS: BP 126/90; PULSE 87; RESP 16; TEMP 36.8; O2SAT 96
== END 2024-03-24 10:44 | disposition home or self-care (01) ==
PROVIDERS: Emergency Provider Nurse Practitioner Family; PCP Internal Medicine
DX: J30.9 Allergic rhinitis, unspecified (principal); M10.9 Gout, unspecified; E78.5 Hyperlipidemia, unspecified; I10 Essential (primary) hypertension; Z79.82 Long term (current) use of aspirin
CPT/HCPCS: 99213; G0463

== ENCOUNTER 2025-03-28 12:05 | Emergency (ER) | payer MEDICARE, SELFPAY | END 2025-03-28 12:15 | disposition home or self-care (01) | LOC: EXPGOSH 05-19 12:13 | DX: Z53.21 Procedure and treatment not carried out due to patient leaving prior to being seen by health care provider (principal) | CPT/HCPCS: 99199 ==

== ENCOUNTER 2025-04-01 11:08 | Emergency (ER) | payer MEDICARE, SELFPAY ==
[2025-04-01 11:19] VITALS: BP 126/87; PULSE 75; RESP 16; TEMP 36.9; O2SAT 97
--- NOTE | 2025-04-01 11:43 | ED.SKABFB ---
HPI - Skin/Abscess/Foreign Bdy General Chief complaint: Skin/Abscess/Foreign Body Stated complaint: Infected Cut Time Seen by Provider: 04/01/25 11:43 Source: patient, family, RN notes reviewed and old records reviewed Mode of arrival: ambulatory Limitations: no limitations History of Present Illness HPI narrative: 65 year old male presents to [facility] care with complaints of wound on his left lower leg which occurred on the of the month when he cut it on a gutter. Patient reports that he was here on the and receive tetanus update at that time. He is concerned because there is more redness around the wound on his left [place] area now and he is going on vacation in 2 weeks and wants to make sure it is healing. reports that they have beencleansing with peroxide and applying Neosporin ointment and covering with band-aid. Patient denies any acute pain to site or any fevers. MD complaint: other (infected cut from 03/26/2025 left leg) Onset (ago): day(s) (occurrred on 03/26/2025) Tetanus up to date: yes Location: LLE Severity: mild Treatments prior to arrival: other (peroxide cleansing with neosporin andband-aide) Related Data Home Medications ?Medication ?Instructions ?Recorded ?Confirmed ?Last Taken ?Type cholecalciferol (vitamin D3) 25 25 mcg PO DAILY 11/18/19 03/12/25 12/10/20 History mcg (1,000 unit) capsule vitamin B complex 1 tablet PO DAILY 11/18/19 03/12/25 12/10/20 History ascorbic acid (vitamin C) 1,000 mg 1 gm PO DAILY 04/06/20 03/12/25 12/10/20 History tablet Vitamin B12 PO 05/07/24 03/12/25 Unknown History Allergies Allergy/AdvReac Type Severity Reaction Status Date / Time No Known Allergies Allergy Verified 03/06/25 14:46 Review of Systems Review of Systems: CONSTITUTIONAL: Denies fever, chills, or sweats. EYES: Denies visual changes, redness, or discharge. ENT: Denies rhinorrhea, congestion, sore throat, or otalgia. CARDIOVASCULAR: Denies chest pain, palpitations, or edema. RESPIRATORY: Denies cough or dyspnea. GASTROINTESTINAL: Denies abdominal pain, nausea, vomiting, or diarrhea. GENITOURINARY: Denies dysuria or hematuria. SKIN: Denies rash or itching.3cm irregular linear area on left anterior [place]land area with no drainage noted but some surrounding redness. MUSCULOSKELETAL: Denies back pain, joint pain, or myalgia. NEUROLOGIC: Denies headache, numbness, or weakness. PSYCHIATRIC: Denies anxiety or depression. All systems reviewed & are unremarkable except as noted in HPI and below PMFSH Past Medical History Medical History Gout Grade II diastolic dysfunction Long-term current use of testosterone cypionate Hematochezia Testicular hypofunction Measles HTN (hypertension) HLD (hyperlipidemia) Chicken pox Surgical History Surgical History History of nasal surgery nasal septal surgery History of tonsillectomy History of surgery on arm Family History Family History Mother Patient's mother is in good health Father Hypertension Other H/O aortic valve replacement Heart disease Social History Social History Smoking status: Never smoker Alcohol intake: current Drinks per week: 3 Alcohol use details: occasional Substance use type: does not use Do You Feel Safe in your Home?: Yes Lack of Transportation: No Lack of Food: Never True Current Housing: Decline to Answer Concerned About Future Housing: Decline to Answer Difficulty Paying Gas/Electric Bills: Decline to Answer Difficulty Paying for Meds: Decline to Answer Currently Unemployed: Decline to Answer Education: Decline to Answer Difficulty w/ Childcare or Family Care: Decline to Answer Living arrangements: with family Gender identity (if verbalized by the patient): Male Spiritual care concerns: No Comments At time of signature, agree with nursing past medical, surgical, social and family history. There is no relevant family history pertinent to the presenting complaint Exam Narrative: GENERAL: Well-appearing, well-nourished, and in no acute distress. HEAD: Normocephalic, atraumatic. EYES: PERRLA and EOMI. ENT: Nares clear, no rhinorrhea or epistaxis. Mucous membranes moist.TM's normal patient is deaf in the right ear, throat pink with no tonsils present. NECK: Supple. no lymphadenopathy CHEST: Clear to auscultation. No respiratory distress.SAO2 97% on room air HEART: Regular rate and rhythm. No murmur heard. Normal peripheral pulses. ABDOMEN: Soft, nontender, nondistended, normal active bowel sounds. EXTREMITIES: Normal range of motion. No edema. SKIN: Warm, dry, no rash. 3cm irregula kinear wound to the left [place] area no drainage noted does have 1cm surrounding redness to wound. no warmth noted or any pustule formation NEURO: No focal deficits. Alert and oriented x3. Course Course Emergency Course: Patient is aware of diagnosis, understands and agrees to treatment plan.? Anticipatory guidance given.? Patient agrees to follow-up as directed and is aware of reasons to seek care at the emergency department. Portions of this record may have been created with voice recognition software Level of Care: Express Care Visit Vital Signs Vital signs: Vital Signs Temperature 36.9 C 04/01/25 11:19 Pulse Rate 75 04/01/25 11:19 Respiratory Rate 16 04/01/25 11:19 Blood Pressure 126/87 04/01/25 11:19 Pulse Oximetry 97 04/01/25 11:19 Temperature 36.9 C 04/01/25 11:19 Pulse Rate 75 04/01/25 11:19 Respiratory Rate 16 04/01/25 11:19 Blood Pressure 126/87 04/01/25 11:19 Pulse Oximetry 97 04/01/25 11:19 Reviewed MDM - Skin/Abscess/Foreign Bdy Differential Diagnosis Differential diagnosis: Likely cellulitis and other (wound to left lower leg, wound with some surrounding redness, wound infection) Medical Records Attestation: I reviewed the patient's medical records. Discharge Plan Discharge Clinical Impression: Leg wound, left, Wound infection Patient Disposition: Home Condition: Stable Instructions: Antibiotic Form, Wound Infection (ED) Additional Instructions: cleanse left lower leg with Hibiclens soap or liquid Dial soap twice daily rinse pat dry apply mupirocin ointment and cover if any drainage noted watch for increasing infection--redness, swelling, drainage Tylenol or ibuprofen for any fever pain follow up with PCP in 7-10 days for a wound check recheck if develop fever, chills, increasing symptom Go to the ER if your symptoms become worse of if ANY new symptoms develop antibiotics as prescribed take with food recommend using probiotic while on this medication If your symptoms persist, change or worsen significantly before you can contact your personal physician then please, without delay, go to the emergency department for further evaluation. Follow-up with PCP in 7-10 days or sooner if needed Follow up with PCP soon in regards to your blood pressure which is elevated above threshold for referral. Blood pressure above 120/80 may indicate pre-hypertension. 126/87 Patient Language: [place] Prescriptions: New mupirocin [Centany] 2 % ointment 1 applic topical BID Qty: 22 0RF amoxicillin-pot clavulanate 875-125 mg tablet 1 tablet PO Q12H Qty: 20 0RF Rx Instructions: take with food No Action cetirizine [Zyrtec] 10 mg tablet 10 mg PO DAILY Qty: 30 0RF vitamin B complex Tablet 1 tablet PO DAILY cholecalciferol (vitamin D3) 25 mcg (1,000 unit) capsule 25 mcg PO DAILY ascorbic acid (vitamin C) 1,000 mg tablet 1 gm PO DAILY Vitamin B12 PO Patient Comments: 2 Gummies every evening atorvastatin 40 mg tablet 40 mg PO DAILY Qty: 90 3RF sertraline 25 mg tablet 25 mg PO DAILY Qty: 7 0RF Rx Instructions: Take daily x 7 days and then start the 50 mg daily. sertraline 50 mg tablet 50 mg PO DAILY Qty: 90 0RF Rx Instructions: Start taking daily after you have completed the 25 mg tablets. tadalafil 20 mg tablet 20 mg PO DAILY PRN (Reason: sexual activity) Qty: 30 3RF (DME) BD Luer-Patricia Syringe 3 mL 25 gauge x 1 syringe See Rx Instructions .ROUTE .MEDSUPPLY Qty: 100 3RF Rx Instructions: Use to inject Testosterone once weekly testosterone cypionate 200 mg/mL oil 80 mg IM WEEKLY Qty: 10 1RF hydrochlorothiazide 12.5 mg capsule See Rx Instructions .ROUTE .COMPLEX Qty: 90 1RF Dose Instruction: TAKE 1 CAPSULE EVERY DAY Rx Instructions: TAKE 1 CAPSULE EVERY DAY losartan 50 mg tablet See Rx Instructions .ROUTE .COMPLEX Qty: 90 1RF Dose Instruction: TAKE 1 TABLET EVERY DAY Rx Instructions: TAKE 1 TABLET EVERY DAY omeprazole 20 mg capsule,delayed release(DR/EC) See Rx Instructions .ROUTE .COMPLEX Qty: 90 1RF Dose Instruction: TAKE 1 CAPSULE EVERY DAY Rx Instructions: TAKE 1 CAPSULE EVERY DAY zolpidem 5 mg tablet 5 mg PO QHS PRN (Reason: insomnia) Qty: 30 2RF Follow-up/Referrals: PHYSICIAN,DIE CLEANER [Primary Care Provider] - Time of Disposition: 11:59 Quality Rena Coma Scale Eyes: Open Verbal: Oriented and Alert Motor: Follows Commands [place] Coma Total Score: 15
== END 2025-04-01 12:02 | disposition home or self-care (01) ==
PROVIDERS: Emergency Provider Registered Nurse
DX: S81.802A Unspecified open wound, left lower leg, initial encounter (principal); L08.9 Local infection of the skin and subcutaneous tissue, unspecified; W45.8XXD Other foreign body or object entering through skin, subsequent encounter; I10 Essential (primary) hypertension; E78.5 Hyperlipidemia, unspecified; M10.9 Gout, unspecified
CPT/HCPCS: 99213; G0463

== ENCOUNTER 2025-09-24 13:19 | Outpatient (CLI) | payer MEDICARE, SELFPAY ==
--- OUTSIDE RECORDS SUMMARY | 2003-01-20 03:45 | XMS_ITS | Continuity of Care Document ---
Author Organization [facility] Address [address] [place] [address] Phone Care Team Providers Care Children'S Author Name Role Phone Xavier Phelps Unavailable Unavailable Advance Directives Directive Yes / No Effective Date File Name No Information Encounters Encounter Description Practice Location Reason(s) For Visit Diagnoses Date Provider Providers Copied on Encounter [facility], [address], [place], [place], [id number], [place] tel:[phone] [address] [facility] No Information [address] [facility] , [address], [place], [address], [place]. tel:[phone] Family History Family Member Type Diagnosis Age At Onset No Information Payers Payer name Insurance type Covered constitution party ID Authoriza tion(s) No Information Social History [...]
--- NOTE | 2025-09-24 13:33 | ECG_ITS ---
Test Date: 2025-09-24 13:48:23 Measurements Intervals [place] Rate: 74 P: 59 MO: 172 QRS: 21 QRSD: 94 T: 29 QT: 361 QTc: 402 Interpretive Statements SINUS RHYTHM NORMAL ECG No previous ECG available for comparison Electronically Signed On 09-24-2025 14:14:11 CDT by Mandeep Posadas D.O.
[2025-09-24 14:17] LABS: Anion Gap 6 mmol/L (4-12); Blood Urea Nitrogen 16 mg/dL (9-20); Calcium 9.3 mg/dL (8.4-10.2); Carbon Dioxide 29 mmol/L (22-30); Chloride 101 mmol/L (98-107); Estimated Glomerular Filt Rate > 60; Glucose 67 mg/dL (65-110); Potassium 4.5 mmol/L (3.4-5.0); Sodium 136 mmol/L (137-145)
--- OUTSIDE RECORDS SUMMARY | 2025-09-24 14:41 | XMS_ITS | Encounter Summary ---
Author Organization [facility] Address [address] [place] [address] Care Team Providers Care Publication Designer Name Role Phone Unavailable Primary Care Provider Unavailabl e Encounter Details Date Type Department Care Team (Late st Contact Info) Description 04/13/2021 Lab Requisition [facility] [address] [place] [address] Maggie Quiroga MD [address] [place], [place] [id number] Illness, unspecified Social History Tobacco Use Types Packs/Day Years Used Date Smoking Tobacco: Never Assessed Sex and Gender Information Value Date Recorded Sex Assigned at Not on file Legal Sex Male 3:25 PM CDT Gender Identity Not on file Sexual Orientation Not on file documented as of this encounter Plan of Treatment Not on file documented as of this encounter Procedures Procedure Name Priority Date/Time Associated Diagnosis Comments PATH CONSULT ON REFERRED CASE Routine 04/09/2021 12:53 PM CDT Illness, unspecified documented in this encounter Results * PATH CONSULT ON REFERRED CASE (04/09/2021 12:53 PM CDT) Final Diagnosis URINE, VOIDED, THIN PREP, CYTOLOGY (OSC:[id number]; 04/09/2021): - Negative for high grade urothelial carcinoma 04/13/2021 1:54 PM CDT [facility] at 1354 CDT Microscopic Description and Comment Microscopic examination substantiates the final diagnosis. 04/13/2021 1:54 PM CDT [facility] Clinical History URGENCY 04/13/2021 1:54 PM CDT [facility] Materials Received Prepared slide received from [facility] [id number]. All material will be returned. 04/13/2021 1:54 PM CDT [facility] Disclaimer The performance characteristics of all immunohistochemical and indirect immunofluorescence stains (if any) cited in this report were determined by the Histopathology [facility] of [facility]. Some of these tests were developed by our own laboratory and have not been cleared or approved by the US Food and Drug Administration. The FDA does not require this test to go through premarket FDA review. These tests are used for clinical purposes. They should not be regarded as investigational or for research. This laboratory is certified under the Clinical Laboratory Improvement Amendments (CLIA) as qualified to perform high complexity clinical laboratory testing. This case has been personally reviewed and interpreted by the attending (teaching) pathologist. 04/13/2021 1:54 PM CDT [facility] Case Report Surgical Pathology Report Case: [id number] Authorizing Provider: Maggie Quiroga MD Collected: 04/09/2021 12:53 PM Ordering Location: [facility] Received: 04/13/2021 12:54 PM Pathologist: Brandan Gilmore MD Specimen: Slide Consultation 04/13/2021 1:54 PM CDT [facility] Embedded Images 04/13/2021 1:54 PM CDT [facility] Pathology/Cytolo gy SURGICAL PATHOLOGY CONSULTATION AND REPORT ON REFERRED SLIDES PREPARED ELSEWHERE / Unknown 04/09/2021 12:53 PM CDT 04/13/2021 12:54 PM CDT Maggie Quiroga MD LAB - PATHOLOGY/CYTOLOGY ORDERAB LES Final Result [facility] [address] [place] [address], [facility] [phone] documented in this encounter Visit Diagnoses Diagnosis Illness, unspecified documented in this encounter
--- OUTSIDE RECORDS SUMMARY | 2025-09-24 14:41 | XMS_ITS | Clinical Summary ---
Author Organization [facility] [address] Address [address] [place] [address] Care Team Providers Care Accountant Certified Public Name Role Phone Jaxon Franco DO Primary Care Provider Baudilio Marte MD Unavailable Allergies No known active allergies Medications omeprazole (PriLOSEC) 20 mg capsule 01/14/2022 Active tadalafiL (CIALIS) 5 mg tablet Take 1 tablet (5 mg total) by mouth daily 12/13/2021 Active aspirin 81 mg enteric coated tablet Take 1 tablet (81 mg total) by mouth daily Active multivitamin capsule Take 1 capsule by mouth daily Active omega 6-ofd-xxf-fish oil 910 mg-330 mg- 450 mg-1,400 mg capsule,delayed release(DR/EC) Take by mouth Active ascorbic acid (VITAMIN C) 250 mg tablet Take 1 tablet (250 mg total) by mouth daily Active cyanocobalamin (Vitamin B-12) 1,000 mcg tabletIndicatio ns:Prevention of Vitamin B12 Deficiency Take 1 tablet (1,000 mcg total) by mouth daily Active zinc 50 mg tablet Take by mouth Active testosterone cypionate (DEPO-TESTOTERO NE) 200 mg/mL injection once a week 11/07/2023 Active zolpidem (AMBIEN) 5 mg tablet Take 1 tablet (5 mg total) by mouth nightly 05/07/2024 Active magnesium oxide (MAG-OX) 250 mg (150.8 mg elemental) tabletIndicatio ns:hypomagnesem ia Take 1 tablet (250 mg total) by mouth daily Active sildenafiL, pulm.hypertensi on, (REVATIO) 20 mg tablet TAKE 1 TO 5 TABLETS BY MOUTH ONCE DAILY NEEDED 06/16/2024 Active cholecalciferol (VITAMIN D-3) 2000 unit tablet Take 1 tablet (2,000 Units total) by mouth daily Active hydroCHLOROthia zide (MICROZIDE) 12.5 mg capsuleIndicati ons:Smoldering myeloma Take 1 capsule (12.5 mg total) by mouth daily 03/03/2025 Active losartan (COZAAR) 50 mg tabletIndicatio ns:Smoldering myeloma Take 1 tablet (50 mg total) by mouth daily 03/03/2025 Active sertraline (ZOLOFT) 50 mg tabletIndicatio ns:Smoldering myeloma Take 1 tablet (50 mg total) by mouth daily 03/06/2025 Active tadalafiL (CIALIS) 20 mg tabletIndicatio ns:Smoldering myeloma Take 1 tablet (20 mg total) by mouth daily as needed 04/08/2025 Active atorvastatin (LIPITOR) 40 mg tabletIndicatio ns:Hyperlipidem ia LDL goal <70 Take 1 tablet (40 mg total) by mouth daily 90 tablet 3 06/30/2025 Active Active Problems Problem Noted Date Diagnosed Date Atypical chest pain 12/27/2024 Coronary artery disease invo lving tonkawa coronary artery of [place] heart without angina pectoris 12/27/2024 IBAN (obstructive sleep apnea) 09/03/2024 Chronic fatigue 05/10/2024 Hypersomnolence 05/10/2024 Abnormal ECG 01/21/2022 History of stroke 01/21/2022 Hyperlipidemia LDL goal <70 01/21/2022 Essential hypertension 01/21/2022 Exertional chest pain 01/21/2022 Syncope and collapse 01/21/2022 Cardiomegaly 01/21/2022 Other ill-defined heart diseases 01/21/2022 Encounters Date Type Department Care Team Description 09/12/2025 Results Follow-Up [facility] [place] [facility] [address] [place] [address] Mar Padron DNP PET/CT FDG Skull to Thigh 09/10/2025 7:58 AM CDT - 09/10/2025 11:59 PM CDT Hospital Encounter [facility] [address] [place] [address] Discharge Disposition: Discharge to home or self care 09/10/2025 7:58 AM CDT - 09/10/2025 11:59 PM CDT Hospital Encounter [facility] [address] [place] [address] Smoldering myeloma Discharge Disposition: Discharge to home or self care 08/22/2025 8:45 AM CDT Office Visit [facility] [place] [facility] Transplant [address] [place] [address] Mar Padron DNP MGUS (monoclonal gammopathy of unknown significance) (Primary Dx); Smoldering myeloma 08/22/2025 8:15 AM CDT Lab [facility] [address] [place] [address] Smoldering myeloma; MGUS (monoclonal gammopathy of unknown significance) 07/17/2025 2:04 PM CDT - 07/17/2025 11:59 PM CDT Hospital Encounter [facility] [address] [place] [address] Tear of right rotator cuff, unspecified tear extent, unspecified whether traumatic Discharge Disposition: Discharge to home or self care 06/30/2025 8:30 AM CDT Office Visit [facility] [address] [place] [phone] Burak Eddy MD Coronary artery disease involving tonkawa coronary artery of [place] heart without angina pectoris (Primary Dx); Essential hypertension; Hyperlipidemia LDL goal <70; IBAN (obstructive sleep apnea); History of stroke; Syncope and collapse 06/30/2025 Telephone [facility] [address] [place] [address] Burak Eddy MD from Last 3 Months Family History Medical History Relation Name Comments hit by car Father Relation Name Status Comments Father (Age 85) Social History Tobacco Use Types Packs/Day Years Used Date Smoking Tobacco: Never Passive Smoke Exposure: Never Smokeless Tobacco: Never Tobacco Cessation:Counseling Given: No AUDIT-C Answer Date Recorded Q1: How often do you have a drink containing alc ohol? 2-4 times a month 02/07/2025 Q2: How many drinks containi ng alcohol do you have on a typical day when you are drinking? 1 or 2 02/07/2025 Q3: How often do you have si x or more drinks on one occasion? 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 Gender Identity Male 07/01/2024 8:58 AM CDT Sexual Orientation Straight 07/01/2024 8: 58 AM CDT Obstetrics History Last Filed Vital Signs Vital Sign Reading Time Taken Comments Blood Pressure 152/94 08/22/2025 8:38 AM CDT Pulse 62 08/22/2025 8:38 AM CDT Temperature 36.8 C (98.3 F) 08/22/2025 8:38 AM CDT Respiratory Rate 14 08/22/2025 8:38 AM CDT Oxygen Saturation 95% 08/22/2025 8:38 AM CDT Inhaled Oxygen Concentration - - Weight 83.7 kg (184 lb 9.6 oz) 08/22/2025 8:38 A M CDT Height 166.4 cm (5' 5.5) 08/22/2025 8:38 AM CDT Body Mass Index 30.25 08/22/2025 8:38 AM CDT Plan of Treatment Health Maintenance Due Date Last Done Comments Colon Cancer Screening-Colonoscopy 1958 Depression Screening 1958 Fall Risk Assessment 1960 Hepatitis C Screening 1958 Prostate Cancer Screening-PSA 1958 DTaP/Tdap/Td Vaccine (1 - Tdap) 1969 Hepatitis B Screening 1976 Pneumococcal vaccine 65+ (1 of 2 - PCV) 1977 Zoster Vaccine (1 of 2) 1977 Well Visit 65+ 2023 Covid-19 Vaccine (3 - season) 2025, 02/21/2021 Influenza Vaccine (#1) 2025 Procedures Procedure Name Priority Date/Time Associated Diagnosis Comments PET/CT FDG SKULL TO THIGH Schedule Routine, Read Routine (OP Routine) 09/10/2025 10:51 AM CDT Smoldering myeloma EGFR Routine 08/22/2025 8:04 AM CDT MGUS (monoclonal gammopathy of unknown significance) DIFFERENTIAL AUTO Routine 08/22/2025 8:0 4 AM CDT MGUS (monoclonal gammopathy of unknown significance) CBC WITH AUTO DIFFERENTIAL Routine 08/22/2025 8:04 AM CDT MGUS (monoclonal gammopathy of unknown significance) COMPREHENSIVE METABOLIC PANEL Routine 08/22/2025 8:04 AM CDT MGUS (monoclonal gammopathy of unknown significance) IGA Routine 08/22/2025 8:04 AM CDT MGUS (monoclonal gammopathy of unknown significance) IGG Routine 08/22/2025 8:04 AM CDT MGUS (monoclonal gammopathy of unknown significance) IGM Routine 08/22/2025 8:04 AM CDT MGUS (monoclonal gammopathy of unknown significance) IMMUNOGLOBULIN FREE LIGHT CHAINS Routine 08/22/2025 8:04 AM CDT MGUS (monoclonal gammopathy of unknown significance) LACTATE DEHYDROGENASE Routine 08/22/2025 8:04 AM CDT MGUS (monoclonal gammopathy of unknown significance) PROTEIN ELECTROPHORESIS, WITH REFLEX, SERUM Routine 08/22/2025 8:04 AM CDT MGUS (monoclonal gammopathy of unknown significance) IMMUNOTYPING Routine 08/22/2025 8:04 AM CDT MGUS (monoclonal gammopathy of unknown significance) MRI SHOULDER RIGHT WO CONTRAST Schedule Routine, Read Routine (OP Routine) 07/17/2025 3:00 PM CDT Tear of right rotator cuff, unspecified tear extent, unspecified whether traumatic POCT LIPID PANEL Routine 06/30/2025 8:44 AM CDT Coronary artery disease involving tonkawa coronary artery of [place] heart without angina pectoris Hyperlipidemia LDL goal <70 from Last 3 Months Results * PET/CT FDG Skull to Thigh (09/10/2025 10:51 AM CDT) Anatomical Region Laterality Modality N/A Positron Emissio n Tomography (PET) 09/10/2025 11:5 1 AM CDT Impressions 09/10/2025 3:25 PM CDT 1. No PET/CT evidence of FDG avid myelomatous disease. 2. Evolving subcutaneous uptake in the anterior right thigh, likely related to prior trauma/fat necrosis or inflammatory change Dictated by: Melissa Sebastian M.D. The radiology attending physician has personally reviewed this study, and had reviewed and/or edited this written report and agrees with it. Electronically signed by: Cristi Samuels MD Narrative 09/10/2025 3:25 PM CDT EXAMINATION: TUMOR FDG-PET/CT IMAGING DATE OF STUDY: 09/10/2025 SCANNER: [facility] RADIOPHARMACEUTICAL: 14.62 mCi F-18 Fluorodeoxyglucose (FDG) i.v. Injection site: Left antecubital HISTORY: 65-year-old with monoclonal gammopathy/smoldering myeloma. The study is requested for treatment monitoring during therapy. Subsequent treatment strategy. TECHNIQUE: The patient's fasting blood glucose level, measured by glucometer before injection of FDG, was 98 mg/dL. After intravenous administration of FDG, noncontrast CT images were obtained for attenuation correction and for fusion with emission PET images to allow for anatomical localization of PET findings. Emission PET images were then obtained. The study was interpreted on the [employer] workstation. The mean liver SUV (reported for software quality assurance specialist purposes) is 2.5. The total scanned area was skull vertex to knees. Images of the body were obtained starting 60 minutes after injection of tracer. All reported SUVs are maximum SUVs, unless otherwise specified. COMPARISON: 09/04/2024 DESCRIPTORS OF LESION FDG AVIDITY: Minimal: <= blood pool Mild: > blood pool and <= liver Moderate: > liver and <= 2x SUVmax liver Moderate to marked: >2x SUVmax liver and <= 3x SUVmax liver Marked: > 3x SUVmax liver FINDINGS: Degenerative/reactive uptake about the right greater than left humeral heads and glenohumeral joints. Redemonstrated stranding is seen. Along the right anterior thigh (image 313) with an SUV of 4.1, previously 2.6, likely evolving fat necrosis/sequela of prior trauma or inflammatory change. Otherwise, no abnormal radiotracer uptake is seen above or below the diaphragm. Additional CT findings: Atherosclerotic calcifications of the left anterior descending artery. Small hiatal hernia. Mild atelectasis in the lung bases. Sigmoid diverticulosis without evidence of diverticulitis. Procedure Note Cristi Samuels MD - 09/10/2025 EXAMINATION: TUMOR FDG-PET/CT IMAGING DATE OF STUDY: 09/10/2025 SCANNER: [facility] RADIOPHARMACEUTICAL: 14.62 mCi F-18 Fluorodeoxyglucose (FDG) i.v. Injection site: Left antecubital HISTORY: 65-year-old with monoclonal gammopathy/smoldering myeloma. The study is requested for treatment monitoring during therapy. Subsequent treatment strategy. TECHNIQUE: The patient's fasting blood glucose level, measured by glucometer before injection of FDG, was 98 mg/dL. After intravenous administration of FDG, noncontrast CT images were obtained for attenuation correction and for fusion with emission PET images to allow for anatomical localization of PET findings. Emission PET images were then obtained. The study was interpreted on the [employer] workstation. The mean liver SUV (reported for software quality assurance specialist purposes) is 2.5. The total scanned area was skull vertex to knees. Images of the body were obtained starting 60 minutes after injection of tracer. All reported SUVs are maximum SUVs, unless otherwise specified. COMPARISON: 09/04/2024 DESCRIPTORS OF LESION FDG AVIDITY: Minimal: <= blood pool Mild: > blood pool and <= liver Moderate: > liver and <= 2x SUVmax liver Moderate to marked: >2x SUVmax liver and <= 3x SUVmax liver Marked: > 3x SUVmax liver FINDINGS: Degenerative/reactive uptake about the right greater than left humeral heads and glenohumeral joints. Redemonstrated stranding is seen. Along the right anterior thigh (image 313) with an SUV of 4.1, previously 2.6, likely evolving fat necrosis/sequela of prior trauma or inflammatory change. Otherwise, no abnormal radiotracer uptake is seen above or below the diaphragm. Additional CT findings: Atherosclerotic calcifications of the left anterior descending artery. Small hiatal hernia. Mild atelectasis in the lung bases. Sigmoid diverticulosis without evidence of diverticulitis. IMPRESSION: 1. No PET/CT evidence of FDG avid myelomatous disease. 2. Evolving subcutaneous uptake in the anterior right thigh, likely related to prior trauma/fat necrosis or inflammatory change Dictated by: Melissa Sebastian M.D. The radiology attending physician has personally reviewed this study, and had reviewed and/or edited this written report and agrees with it. Electronically signed by: Cristi Samuels MD Mar Padron [facility] IMG PET PROCEDURES Fi nal Result * Immunotyping, serum with interpretation (08/22/2025 8:04 AM CDT) Pathologist [facility] Immunosubtraction Please see comment Comment: IGG KAPPA PARAPROTEIN Reviewed and signed by Mela Galvez MD, PhD 08/24/2025 Blood 08/22/2025 8:04 AM CDT 08/22/2025 9:13 AM CDT Baudilio Marte MD LAB BLOOD ORDER DEVIN Final Result [facility] [address] [place] [address] * eGFR (08/22/2025 8:04 AM CDT) Pathologist [facility] eGFR 74 >=60 mL/min/1. 73 m2 Comment: Interpretive Data Reference Interval Normal >/= 90 mL/min/1.73m2 Mildly decreased* 60 - 89 mL/min/1.73m2 Mildly to moderately decreased 45 - 59 mL/min/1.73m2 Moderately to severely decreased 30 - 44 mL/min/1.73m2 Severely decreased 15 - 29 mL/min/1.73m2 Kidney Failure < 15 mL/min/1.73m2 *Relative to young adult level Estimated glomerular filtration rate is determined by the 2020 CKD-EPI equation recommended by the National Kidney Foundation (A Unifying Approach to GFR Estimation: Recommendations of the NKF-ASK Task Force on Reassessing the Inclusion of Race in Diagnosing Kidney Disease, JASN 2020). The CKD-EPI equation should not be used for patients with unstable renal function and has not been validated in children and those over 70. Current interpretive data was last reviewed 2021. Blood 08/22/2025 8:04 AM CDT 08/22/2025 8:04 AM CDT Baudilio Marte MD LAB BLOOD ORDER DEVIN Final Result [facility] [address] [place] [address] * Differential, auto (08/22/2025 8:04 AM CDT) Neutrophil abs 5.03 1.50 - 6.50 K/cumm Comment:Testing performed by : [facility], [address] [place] [address] Imm gran abs 0.02 0.00 - 0.10 K/cumm [facility] Lymphocyte abs 1.53 0.80 - 3.30 K/cumm [facility] Monocyte abs 0.73 0.20 - 0.80 K/cumm [facility] Eosinophil abs 0.22 0.00 - 0.50 K/cumm [facility] Basophil abs 0.08 0.00 - 0.10 K/cumm [facility] Neutrophil pct 66.0 % [facility] Comment: Interpretive Data Percent cell count reference ranges are not reported, since discordance with absolute values may lead to misinterpretation of CBC data. Current Interpretive Data was last revised on 2018. Imm gran pct 0.3 % [facility] Comment: Interpretive Data Percent cell count reference ranges are not reported, since discordance with absolute values may lead to misinterpretation of CBC data. Current Interpretive Data was last revised on 2018. Lymphocyte pct 20.1 % [facility] Comment: Interpretive Data Percent cell count reference ranges are not reported, since discordance with absolute values may lead to misinterpretation of CBC data. Current Interpretive Data was last revised on 2018. Monocyte pct 9.6 % [facility] Comment: Interpretive Data Percent cell count reference ranges are not reported, since discordance with absolute values may lead to misinterpretation of CBC data. Current Interpretive Data was last revised on 2018. Eosinophil pct 2.9 % [facility] Comment: Interpretive Data Percent cell count reference ranges are not reported, since discordance with absolute values may lead to misinterpretation of CBC data. Current Interpretive Data was last revised on 2018. Basophil pct 1.1 % [facility] Comment: Interpretive Data Percent cell count reference ranges are not reported, since discordance with absolute values may lead to misinterpretation of CBC data. Current Interpretive Data was last revised on 2018. Blood 08/22/2025 8:04 AM CDT 08/22/2025 8:04 AM CDT Baudilio Marte MD LAB BLOOD ORDER DEVIN Final Result [facility] [address] [place] [address] * (ABNORMAL) Immunoglobulin free light chains (08/22/2025 8:04 AM CDT) [place]/Lambda ratio [facility] 1.21 0.26 - 1.65 Comment: Interpretive Data The Binding Site FreeLite assay procedure was used. Results from different manufacturers or methods may not be comparable. Serial testing should be performed using the same methods and instrumentation. Current Interpretive Data was last revised on 2024. [place] free light chain [facility] 2.85(H) 0.33 - 1.94 mg/dL [facility] Comment: Interpretive Data The Binding Site FreeLite assay procedure was used. Results from different manufacturers or methods may not be comparable. Serial testing should be performed using the same methods and instrumentation. Current Interpretive Data was last revised on 2024. Lambda free light chain [facility] 2.35 0.57 - 2.63 mg/dL [facility] Comment: Interpretive Data The Binding Site FreeLite assay procedure was used. Results from different manufacturers or methods may not be comparable. Serial testing should be performed using the same methods and instrumentation. Current Interpretive Data was last revised on 2024. Blood 08/22/2025 8:04 AM CDT 08/22/2025 9:13 AM CDT Baudilio Marte MD LAB BLOOD ORDER DEVIN Final Result [facility] [address] [place] [address] * (ABNORMAL) CBC with auto differential (08/22/2025 8:04 AM CDT) [facility] WBC 7.61 3.80 - 9.90 K/cumm Comment:Testing performed by : [address] [address] Hgb 16.2 13.0 - 17.5 g/dL [facility] Comment:Testing performed by : [address] [address] Hct 47.9 38.9 - 50.3 % [facility] Comment:Testing performed by : [address] [address] Plt 291 150 - 400 K/cumm [facility] Comment:Testing performed by : [address] [address] MPV 8.9(L) 9.1 - 12.3 fL [facility] RBC 5.25 4.30 - 5.80 M/cumm [facility] MCV 91.2 81.3 - 96.4 fL [facility] MCH 30.9 27.1 - 33.3 pg [facility] MCHC 33.8 32.3 - 35.7 g/dL [facility] RDW CV 12.6 11.1 - 14.9 % [facility] RDW SD 41.6 35.7 - 48.1 fL [facility] NRBC abs 0.00 0.00 - 0.01 K/cumm [facility] ANC Prelim 5.03 1.50 - 6.50 K/cumm [facility] Comment: Interpretive Data The rapid ANC is a preliminary automated count and may vary from the final ANC (Neut Abs) reported in the WBC differential that follows. Current interpretive data was last revised 2025. Blood 08/22/2025 8:04 AM CDT 08/22/2025 8:04 AM CDT Baudilio Marte MD LAB BLOOD ORDER DEVIN Final Result [facility] [address] [place] [address] * (ABNORMAL) Protein electrophoresis with reflex, serum with interpretation (08/22/2025 8:04 AM CDT) Protein, sr 7.0 6.2 - 8.2 g/dL Albumin 4.4 3.2 - 5.0 g/dL [facility] Alpha-1 globulin 0.4 0.2 - 0.4 g/dL [facility] Alpha-2 globulin 0.5 0.5 - 1.0 g/dL [facility] Beta-1 globulin 0.5 0.3 - 0.6 g/dL [facility] Beta-2 globulin 0.4 0.2 - 0.6 g/dL [facility] Gamma globulin 0.8 0.5 - 1.7 g/dL [facility] Rstr Pk Gamma 0.2(H) 0.0 - 0.0 g/dL [facility] SPEP interp Please see comment [facility] Comment: Abnormal restricted peak in Gamma region Electrophoretic pattern appears similar to previous sample 05-03-25 See immunotyping for further information Reviewed and signed by Mela Galvez MD, PhD 08/24/2025 Immunotyping See Immunotyping Results [facility] Blood 08/22/2025 8:04 AM CDT 08/22/2025 9:13 AM CDT Baudilio Marte MD LAB BLOOD ORDER DEVIN Final Result Performing Organization Address City/[facility] Co de Phone Number [facility] [place] [address] * Lactate dehydrogenase (LD) (08/22/2025 8:04 AM CDT) [facility] Lactate dehydrogenase (LDH) 129 100 - 250 Units/L Comment:Testing performed by : [address] [address] Blood 08/22/2025 8:04 AM CDT 08/22/2025 8:04 AM CDT Baudilio Marte MD LAB BLOOD ORDER DEVIN Final Result Performing Organization Address City/[facility] Co de Phone Number [facility] [place] [address] * IgA (08/22/2025 8:04 AM CDT) Pathologist [facility] Immunoglobulin A 357 70 - 400 mg/dL Blood 08/22/2025 8:04 AM CDT 08/22/2025 9:13 AM CDT Baudilio Marte MD LAB BLOOD ORDER DEVIN Final Result Performing Organization Address City/[facility] Co de Phone Number [facility] [place] [address] * (ABNORMAL) IgM (08/22/2025 8:04 AM CDT) Pathologist [facility] Immunoglobulin M 29(L) 40 - 230 mg/dL Blood 08/22/2025 8:04 AM CDT 08/22/2025 9:13 AM CDT Baudilio Marte MD LAB BLOOD ORDER DEVIN Final Result [facility] Department [place] [address] * IgG (08/22/2025 8:04 AM CDT) Pathologist [facility] Immunoglobulin G 947 700 - 1,600 mg/dL Blood 08/22/2025 8:04 AM CDT 08/22/2025 9:13 AM CDT Baudilio Marte MD LAB BLOOD ORDER DEVIN Final Result Performing Organization Address [facility] de Phone Number [facility] Department [place] [address] * Comprehensive metabolic panel (08/22/2025 8:04 AM CDT) [facility] Sodium 142 135 - 145 mmol/L Comment:Testing performed by : [facility], [address] [place] [address] Potassium, pl 4.7 3.3 - 4.9 mmol/L [facility] Chloride 103 97 - 110 mmol/L [facility] CO2 32 22 - 32 mmol/L [facility] Anion gap 7 2 - 15 mmol/L [facility] BUN 13 6 - 25 mg/dL [facility] Creatinine 1.10 0.80 - 1.30 mg/dL [facility] Glucose 81 70 - 199 mg/dL [facility] Comment: Interpretive Data Fasting glucose >/= 126 mg/dl is diagnostic for diabetes. Fasting is defined as no caloric intake for at least 8 hours. Fasting glucose between 100 mg/dl to 125 mg/dl is diagnostic of prediabetes. In a patient with classic symptoms of hyperglycemia or hyperglycemic crisis, a random glucose >/= 200 mg/dl is diagnostic for diabetes. In the absence of unequivocal hyperglycemia, results should be confirmed by repeat testing. The classification and Diagnosis of Diabetes Diabetes Care 202; 46: S19-S40. Current interpretive data was last revised 2022. Calcium 9.6 8.5 - 10.3 mg/dL [facility] Bilirubin, total 0.5 0.1 - 1.2 mg/dL [facility] Protein, pl 7.2 6.5 - 8.5 g/dL [facility] Albumin 4.4 3.5 - 5.0 g/dL [facility] Alk phos 53 40 - 130 Units/L [facility] ALT 18 7 - 55 Units/L [facility] AST 16 10 - 50 Units/L [facility] Blood 08/22/2025 8:04 AM CDT 08/22/2025 8:04 AM CDT us Baudilio Marte MD LAB BLOOD ORDER DEVIN Final Result [facility] [address] [place] [address] * MRI Shoulder Right WO Contrast (07/17/2025 3:00 PM CDT) Anatomical Region Laterality Modality Upper Extremities Right Magnetic Reson ance 07/17/2025 3:22 PM CDT Narrative 07/17/2025 3:30 PM CDT EXAM DESCRIPTION: MRI SHOULDER RIGHT WO CONTRAST REASON FOR STUDY: UNSPECIFIED ROTATOR CUFF TEAR OR RUPTURE OF RIGHT SHOULDER, NOT SPECIFIED TRAUMATIC Pt c/o Rt shoulder pain for approx 6 months. 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 Occasional popping. Pain radiates laterally down RT arm. Denies numbness and tinging. Loss in ROM - pain if trying to lift arm above shoulder level. TECHNIQUE: Multiplanar, multisequence MRI of the right shoulder was performed without contrast. COMPARISON: None FINDINGS: Rotator Cuff: Advanced supraspinatus tendinosis with full-thickness near full width tearing and tendon retraction to the mid humeral head. Infraspinatus mild tendinosis without discrete tearing. The teres minor is intact. Intra-articular biceps appears severely diminutive in size. Subscapularis moderate tendinosis with high-grade articular surface tearing involving greater than 50% tendon thickness. No muscle atrophy or edema. Biceps Tendon: Severely diminutive in size. Labrum: There is tearing of the posterosuperior and posteroinferior labrum involving approximately 180 degrees. Acromion and AC Joint: The coracoacromial and coracoclavicular ligaments are intact. 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 Type 2 acromion. Glenohumeral Articulation: No subluxation. No chondromalacia. Bones: No fracture. Joint and bursae: Mild glenohumeral effusion subacromial/subdeltoid bursitis. No intra-articular body. Soft Tissues: The scapular notch, and quadrilateral space are unremarkable. There is no axillary lymphadenopathy. IMPRESSION: 1. Supraspinatus advanced tendinosis with full-thickness near full width tearing and tendon retraction to the mid humeral head. 2. Infraspinatus mild tendinosis without discrete tearing. 3. Subscapularis moderate tendinosis with high-grade articular surface tearing involving greater than 50% tendon thickness. 4. Intra-articular biceps appears severely diminutive in size. 5. Posterosuperior and posteroinferior labrum tearing involving approximately 180 degrees. 6. Acromioclavicular articulation moderate osteoarthritis. 7. Mild glenohumeral effusion and subacromial/subdeltoid bursitis. THIS IS AN ELECTRONICALLY VERIFIED FINAL REPORT 07/17/2025 3:30 PM - Electronically signed by Lc Madrid M.D. JA: MARIE Report ID: [id number] Reading Location: [id number] Procedure Note Lc Madrid MD - 07/17/2025 EXAM DESCRIPTION: MRI SHOULDER RIGHT WO CONTRAST REASON FOR STUDY: UNSPECIFIED ROTATOR CUFF TEAR OR RUPTURE OF RIGHTSHOULDER, NOT SPECIFIED TRAUMATIC Pt c/o Rt shoulder pain for approx 6 months. 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 Occasional popping. Pain radiates laterally down RT arm. Denies numbness and tinging. Loss in ROM - pain if trying to lift arm above shoulder level. TECHNIQUE: Multiplanar, multisequence MRI of the right shoulder was performed without contrast. COMPARISON: None FINDINGS: Rotator Cuff: Advanced supraspinatus tendinosis with full-thickness nearfull width tearing and tendon retraction to the mid humeral head.Infraspinatus mild tendinosis without discrete tearing. The teres minor is intact. Intra-articular biceps appears severely diminutive in size. Subscapularis moderate tendinosis with high-grade articular surface tearing involving greater than 50% tendon thickness. No muscle atrophy or edema. Biceps Tendon: Severely diminutive in size. Labrum: There is tearing of the posterosuperior and posteroinferiorlabrum involving approximately 180 degrees. Acromion and AC Joint: The coracoacromial and coracoclavicular ligamentsare intact. 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 Type 2 acromion. Glenohumeral Articulation: No subluxation. No chondromalacia. Bones: No fracture. Joint and bursae: Mild glenohumeral effusion subacromial/subdeltoidbursitis. No intra-articular body. Soft Tissues: The scapular notch, and quadrilateral space areunremarkable. There is no axillary lymphadenopathy. IMPRESSION: 1. Supraspinatus advanced tendinosis with full-thickness near full width tearing and tendon retraction to the mid humeral head. 2. Infraspinatus mild tendinosis without discrete tearing. 3. Subscapularis moderate tendinosis with high-grade articular surface tearing involving greater than 50% tendon thickness. 4. Intra-articular biceps appears severely diminutive in size. 5. Posterosuperior and posteroinferior labrum tearing involving approximately 180 degrees. 6. Acromioclavicular articulation moderate osteoarthritis. 7. Mild glenohumeral effusion and subacromial/subdeltoid bursitis. THIS IS AN ELECTRONICALLY VERIFIED FINAL REPORT 07/17/2025 3:30 PM - Electronically signed by Lc Madrid M.D. JA: MARIE Report ID: [id number] Reading Location: [id number] us Ethan Moya MD IMG MRI PROCEDURES Final R esult * (ABNORMAL) POCT lipid panel (06/30/2025 8:44 AM CDT) Cholesterol, POC 243 <200 MG/DL HDL, POC 39(A) >=40 mg/dL Triglycerides, POC 336(A) <=149 mg/dL LDL Cholesterol POC 137(A) <=129 mg/dL Chol/HDL Ratio, POC 3.5 NONE Non-HDL Cholesterol, POC 204 NONE mg/dL Cholesterol Total, POC 243(A) 30 - 199 mg/dL Capillary blood 06/30/2025 8 :44 AM CDT Burak Eddy MD POINT OF CARE TEST ORDERA BLES Edited Result - Final from Last 3 Months Insurance [employer] MEDICARE HMO Care Teams Accountant Certified Public Relationship Specialty Start Date End Date Jaxon Franco DO PCP - General Internal Medicine 11/09/22 Baudilio Marte MD Consulting Physician Medical Oncology 07/09/24
--- OUTSIDE RECORDS SUMMARY | 2025-09-24 14:41 | XMS_ITS | Encounter Summary ---
Author Organization [facility] Address [address] [place] [address] Phone Care Team Providers Care Communications Field Technician Name Role Phone Jaxon Franco DO Primary Care Provider Baudilio Marte MD Unavailable Encounter Details Date Type Department Care Team (Late st Contact Info) Description 09/12/2025 Results Follow-Up [facility] [address] [place] [address] Mar Padron, 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 [employer] message sent. documented in this encounter Plan of Treatment Not on file documented as of this encounter Visit Diagnoses Not on filedocumented in this encounter Care Teams Communications Field Technician Relationship Specialty Start Date End Date Jaxon Franco DO PCP - General Internal Medicine 11/09/22 Baudilio Marte MD Consulting Physician Medical Oncology 07/09/24 documented as of this encounter
--- OUTSIDE RECORDS SUMMARY | 2025-09-24 14:41 | XMS_ITS | Clinical Summary ---
Author Organization [facility] Address [address] [place] [address] Care Team Providers Care Financial Compliance Examiner Name Role Phone Unavailable Primary Care Provider Unavailabl e Source Comments [facility],non-owned Affiliates and Associated Physician Practices is amultiple site organization consisting of ambulatory clinics and hospital sitesin [place], [place], [place] and [place]. This disclosure is being madepursuant to the Care Everywhere program and may not contain all information available regarding this patient. Last updated 18.[facility] Social History Tobacco Use Types Packs/Day Years Used Date Smoking Tobacco: Never Assessed Sex and Gender Information Value Date Recorded Sex Assigned at Not on file Legal Sex Male 3:25 PM CDT Gender Identity Not on file Sexual Orientation Not on file Plan of Treatment Health Maintenance Due Date Last Done Comments COLOGUARD (AGES 45-75) - COL ON CA SCREENING 1958 COLON MONITORING 1958 COLONOSCOPY - COLON CA SCREENING 1958 CT COLONOGRAPHY - COLON CA SCREENING 1958 Colorectal Cancer Screening 1958 FIT - COLON CA SCREENING 1958 FLEX SIG - COLON CA SCREENING 1958 LIPID TESTING 1958 HEPATITIS C SCREENING 01/18/1976 DTAP/TDAP/TD VACCINES (1 - Tdap) 1977 PNEUMOCOCCAL VACCINE 50+ (1 of 1 - PCV) 2008 ZOSTER VACCINE (1 of 2) 2008 DEPRESSION SCREENING 11/27/2024 COVID-19 VACCINE (1 - 2023-2 5 season) 2025 INFLUENZA VACCINE (#1) 2025 Respiratory Syncytial Virus (RSV) Vaccine Pt: or over 60 yrs (1 - 1-dose 75+ series) 2033 HEPATITIS B VACCINE Aged Out No longe r eligible based on patient's age to complete this topic HIB VACCINE Aged Out No longer eligi ble based on patient's age to complete this topic HPV VACCINE Aged Out No longer eligi ble based on patient's age to complete this topic MENINGOCOCCAL (Group B) VACC INE SHARED DECISION-MAKING Aged Out No longer eligibl e based on patient's age to complete this topic MENINGOCOCCAL GROUPS A/C/Y/W VACCINE Aged Out No longer eligible b ased on patient's age to complete this topic Insurance
== END 2025-09-24 13:20 | disposition home or self-care (01) ==
PROVIDERS: Anesthesiology; PCP Internal Medicine; Visit Provider Orthopaedic Surgery
DX: I10 Essential (primary) hypertension (principal); Z01.818 Encounter for other preprocedural examination; Z79.899 Other long term (current) drug therapy
CPT/HCPCS: 36415; 80048; 93005

== ENCOUNTER 2025-10-02 01:33 | Day surgery (SDC) | payer MEDICARE, SELFPAY ==
--- OUTSIDE RECORDS SUMMARY | 2003-01-20 02:45 | XMS_ITS | Continuity of Care Document ---
Author Organization [facility] Address [address] [place] [address] Phone Care Team Providers Care Supervisor Liquid Yeast Name Role Phone Xavier Phelps Unavailable Unavailable Advance Directives Directive Yes / No Effective Date File Name No Information Encounters Encounter Description Practice Location Reason(s) For Visit Diagnoses Date Provider Providers Copied on Encounter [facility], [address], [place], [place], [id number], [place] tel:[phone] [facility] No Information [address] [facility] , [address], [place], [address], [place]. tel:[phone] Family History Family Member Type Diagnosis Age At Onset No Information Payers Payer name Insurance type Covered democrat ID Authoriza tion(s) No Information Social History Type Description Quantity Date Captured Comments Sex Male Smoking Status No Information Chief Complaint And Reason For Visit No Information Reason For Referral Reason For Referral No Information History Of Present Illness Encounter Date Complaint History Of Prese nt Illness No Information Functional Status Date Functional Assessmen t No Information Instructions Date Instruction Additional Infor mation No Information Assessments Type Assessment Date No Information Patient Care Teams Name Effective Dates (start - stop) Status Members No Information
[2025-09-24 08:39] VITALS: BMI 28.4
--- NOTE | 2025-09-24 08:49 | PC.NURSE ---
[facility] has started construction of its new state of the art ER which will open Spring 2026. With this, we anticipate parking may be a challenge for some our surgical patients and families. Parking spaces are limited but are available for all Surgical, obstetrics, and ER patients sharing this lot. If you arrive and find you are having a hard time finding a parking space, please note that we understand the challenges, please drive around the hospital and park near Hospital Entrance 1. When you enter this entrance, you can ask a volunteer to direct or take you back to the surgical waiting area to check in. We appreciate everyone?s understanding of these expected challenges while we build for your future. Report to the Outpatient Waiting Room, entrance under the green pavilion located off [address], at time _0830_ on date _[id number]_. Planned Procedure Time: _1030_.? Time changes happen often and if your time is changed the preop area will call you the afternoon before. - You and your visitor will be asked to self-screen and do not enter if you have any COVID symptoms. Please call surgeon if you need to reschedule. - A mask is optional within the hospital at this time. Patients may have clear liquids (water, carbonated beverages, clear teas, apple juice) until 3 hours prior to surgery with a maximum of 20 ounces. - No food from midnight until time of surgery and no smoking, or chewing tobacco (or any form of nicotine). No chewing gum, candy or mints. Take only the following medications with a SIP of water on the morning of surgery: __Sertraline DO NOT STOP ANY OF YOUR OTHER PRESCRIPTION MEDICATIONS PRIOR TO SURGERY EXCEPT THE FOLLOWING Hold all vitamins and supplements for 3 days per anesthesiologist. Medications to discontinue per physician ___Aspirin Date to take last dtui___[id number]____ Please no make-up, nail chadian, hairspray, perfume, deodorant, or body powder the day of surgery.? No jewelry (including any body piercings) or valuables the day of surgery, leave them at home.? Please take a shower or bath the night before, or the morning of, surgery with an antibacterial soap.? Wear comfortable, loose fitting clothing.? - Jewelry must be removed prior to entering the operating room.? Rings and piercings that are not removed may be cut off. - The hospital will not accept responsibility for valuables.? - Please leave all valuables, including medications, at home the day of surgery. If you are going home after surgery, a licensed truck driver rubbish collector must drive you home.? - NO public transportation without another adult if you receive anesthesia. - We recommend that an adult stay with you for 24 hours following discharge. - We also recommend that you do not drive, make important decision, drink alcoholic beverages, or take any drugs that were not prescribed by your health care provider for at least 24 hours after your discharge time. Follow any additional instructions given to you from your surgeon. Telephone instructions given to __Fred___and asked if any additional questions and then verbalized understanding. Patient advised to call surgeon office or pre surgery nurse liaison [phone] if any additional questions.
[2025-10-02] VITALS (9 sets, daily range): BP systolic 118–146; BP diastolic 83–98; PULSE 70–82; RESP 10–16; TEMP 36.1–36.6; O2SAT 96–100
--- NOTE | 2025-10-02 09:22 | WPDANESEPPF ---
Anes - Initial Pre Proc Eval Procedure: Operation Date: 10/02/25 10:30 Proposed Procedures p Right Shoulder Arthroscopic Rotator Cuff Repair, Biceps Tenodesis, Subacromial Decompression and Debridement - Ethan Moya MD Date/Time: 10/02/25 09:22 Surgeon: Ethan Moya MD Pre Op Diagnosis: full thickness rot cuff tear, Biceps Tendonosis Patient Data Age: 65 Gender: M Height: 1.68 m Weight: 79.9 kg Allergies Allergy/AdvReac Type Severity Reaction Status Date / Time No Known Allergies Allergy Verified 09/24/25 14:15 Home Medications ?Medication ?Instructions ?Recorded ?Confirmed ?Type cholecalciferol (vitamin D3) 25 25 mcg PO DAILY 11/18/19 09/24/25 History mcg (1,000 unit) capsule syringe with needle 3 mL 25 gauge #100 ea 02/12/21 09/24/25 Rx x 1 (BD Luer-Patricia Syringe) Vitamin B12 1,000 mcg PO DAILY 05/07/24 09/24/25 History testosterone cypionate 200 mg/mL 80 mg (0.4 mL) IM WEEKLY #10 mL 01/31/25 09/24/25 Rx intramuscular oil aspirin 81 mg tablet 81 mg PO DAILY 04/09/25 09/24/25 History omega-3 fatty acids [Fish Oil] 1 cap PO DAILY 04/09/25 09/24/25 History tadalafil 20 mg tablet 20 mg PO DAILY PRN sexual activity 07/04/25 09/24/25 Rx #30 tabs hydrochlorothiazide 12.5 mg capsule See Rx Instructions .Route 07/29/25 09/24/25 Rx .COMPLEX #90 caps omeprazole 20 mg capsule,delayed See Rx Instructions .Route 07/29/25 09/24/25 Rx release .COMPLEX #90 caps zolpidem 5 mg tablet 5 mg PO QHS PRN insomnia #30 tabs 07/31/25 09/24/25 Rx atorvastatin 40 mg tablet 40 mg PO DAILY 09/03/25 09/24/25 History losartan 50 mg tablet 50 mg PO DAILY 09/03/25 09/24/25 History magnesium glycinate 100 mg PO HS 09/03/25 09/24/25 History sertraline 100 mg tablet 100 mg PO DAILY #90 tabs 09/03/25 09/24/25 Rx vitamin E (dl, acetate) 45 mg (100 650 mg PO DAILY 09/03/25 09/24/25 History unit) capsule Patient hx anesthesia problems: none Family hx anesthesia problems: none Results Review: All pre-operative results and documents have been reviewed as part of the pre-operative evaluation. [facility] Past Medical History Medical History Myeloma Gout Grade II diastolic dysfunction Long-term current use of testosterone cypionate Hematochezia Testicular hypofunction Measles HTN (hypertension) HLD (hyperlipidemia) Chicken pox Surgical History Surgical History History of nasal surgery nasal septal surgery History of tonsillectomy History of surgery on arm Family History Family History Mother Neuropathy Father Hypertension Other H/O aortic valve replacement Heart disease Sibling Neuropathy Social History Social History Smoking status: Never smoker Alcohol intake: current Drinks per week: 3 Alcohol use details: occasional Substance use: never Substance use type: does not use Do You Feel Safe in your Home?: Yes Lack of Transportation: No Lack of Food: Never True Current Housing: Decline to Answer Concerned About Future Housing: Decline to Answer Difficulty Paying Gas/Electric Bills: Decline to Answer Difficulty Paying for Meds: Decline to Answer Currently Unemployed: Decline to Answer Education: Decline to Answer Difficulty w/ Childcare or Family Care: Decline to Answer Living arrangements: with family Gender identity (if verbalized by the patient): Male Spiritual care concerns: No Anes - Eval Final PreProcedure Day of Procedure 10/02/25 09:22 Patient weight: overweight Heart: regular rate and rhythm Lungs: clear to auscultation Airway: Mallampati scale class II Neurological: alert and oriented Last oral intake: >/= 8 hours ASA classification: III Emergent: no Anesthetic plan: proceed Anesthesia type and monitoring: general ETT and standard monitoring Results Review: All pre-operative results and documents have been reviewed as part of the pre-operative evaluation. Informed Consent: The patient's anesthetic plan and its attendant risks and benefits were discussed with the patient/family/POA. Questions were solicited and answers provided to the satisfaction of the patient/family/POA.
[2025-10-02] MEDS: ACETAMINOPHEN 500 MG TABLET 1000 MG PO (09:30)
[2025-10-02] MEDS: LACTATED RINGERS 1,000 ML 30 ML IV CONT ×2 (09:30→12:43)
[2025-10-02] MEDS: KETOROLAC 15 MG/ML VIAL (*BKC) IV PUSH (09:30)
--- NOTE | 2025-10-02 09:43 | WPDANESPNB ---
Anes - Peripheral Nerve Block Date/Time: 10/02/25 09:43 I have discussed with the patient/family/POA the placement of a peripheral nerve block for post-operative pain management, including associated risks, benefits, complications, and side effects. Alternative methods of post-operative analgesia were detailed. Questions were solicited and answers provided to the satisfaction of the patient/family/POA. Time-Out: A pre-procedural Time-Out was completed immediately before starting the procedure and confirmed: Patient Identification, Site, Procedure, Patient Position and the Availability of Requisite Equipment. Clinical Indications: Acute post-operative pain management requested by the operative surgeon. Nerve Block Insertion Note Anes-nerve block: interscalene right Patient position: supine Skin prep: chlorhexidine Needle: 22 gauge, stimulating, insulated echogenic needle. Needle length: 50 mm Technique: ultrasound Injectate: bupivacaine 0.5% with epi 5 mcg/ml (20cc- no epi) Observations: tolerated well Complications: none Procedure start time:: 1001 Procedure end time:: 100
--- NOTE | 2025-10-02 09:49 | WPDHPUPDATE1 ---
History and Physical Update Update Date/Time: 10/02/25 09:49 History and Physical has been reviewed, including an updated exam of the patient. There are NO changes in the patient's condition. Risks, benefits, and alternatives have been discussed and questions answered. Patient agrees to proceed with procedure.
[2025-10-02] MEDS: ceFAZolin 2 GM in SODIUM CHLORIDE 0.9% IV 50 ML 100 ML IVPB (10:17)
--- NOTE | 2025-10-02 14:43 | W.PM.PROC2 ---
Procedure Note - Detailed Date of Procedure 10/02/25 Pre-op Diagnosis 1. Full-thickness rotator cuff tear right shoulder 2. Subacromial impingement 3. 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 Arthroscopic rotator cuff repair 2. Arthroscopic subacromial decompression 3. Arthroscopic labral debridement Surgeon Ethan Moya MD Draw Bench Operator Lizzie Acosta PA-C Anesthesia General Findings Large supraspinatus tear with extension into the upper subscapularis. Biceps chronically ruptured. Diffuse labral fraying and degeneration. The subscapularis was repaired with a horizontal mattress suture and SwiveLock anchor. The supraspinatus was repaired with 2 bone tunnels with 6 sutures rip stop technique. Supplemental horizontal mattress anterior and posterior secured with a SwiveLock laterally. Subacromial decompression with acromioplasty. Description of Procedure Preoperative antibiotics were given. The patient was bought brought to the operating room. A general anesthetic was administered. The patient was carefully positioned in the beach chair position. The head and neck were carefully positioned. The non operative extremity was also carefully positioned. The shoulder was prepped and draped in the usual sterile fashion. Examination was performed. There were no abnormal findings. Standard posterior and anterior arthroscopic portals were established. Inflow achieved with the arthroscopic pump using saline and epinephrine. The glenohumeral joint was carefully inspected. The labrum was frayed and treated with debridement. A large supraspinatus tear was confirmed without significant retraction. The subscapularis was torn at the upper aspect with a comma sign. Horizontal mattress suture placed in the tendon was brought to a SwiveLock anchor with a nice reduction. An extra suture limb from this anchor was used later to secure the anterior most supraspinatus/rotator interval tissue. Attention was turned to the subacromial space. A complete bursectomy was performed. The acromion was cleared with the radiofrequency probe. There was evidence of impingement on the rotator cuff with fraying of the soft tissues at the anterolateral acromion. The arthroscopic bur was used to remove the anterolateral inferior bone creating a nice decompression. The tear configuration was carefully assessed. At this point, 2 tunnels were created at the rotator cuff. Three sutures were passed through each tunnel. All sutures were then passed through the cuff tissue. The sutures were tied arthroscopically. A supplemental horizontal mattress was placed in the very posterior most cuff infraspinatus tissue previously. The arthroscopic instruments were removed. The wounds were closed with 4-0 Monocryl subcuticular suture and steri strips. There were no complications. A sling was applied and the patient brought to the recovery room. Physician shipping and receiving assistant, Lizzie Acosta PA-C, required for surgery; including patient positioning, draping, arthroscopic camera operation, maintaining instrument position, suture retrieval, wound closure, and dressing and sling placement. Implants Arthrex SwiveLock anchor 4.75 mm bioabsorbable x2 Estimated Blood Loss 10 Pathology None sent Complications No immediate complications Condition Stable Disposition PACU [facility] Billing Surgery - Charge Forward: Surgery Billing
--- OUTSIDE RECORDS SUMMARY | 2025-10-02 16:11 | XMS_ITS | Clinical Summary ---
Author Organization [facility] Address [address] [place] [address] Care Team Providers Care Graphic Design Intern Name Role Phone Unavailable Primary Care Provider Unavailabl e Source Comments [facility],non-owned Affiliates and Associated Physician Practices is amultiple site organization consisting of ambulatory clinics and hospital sitesin [place], [place], [place] and [place]. This disclosure is being madepursuant to the Care Everywhere program and may not contain all information available regarding this patient. Last updated 18.[facility] Social History Tobacco Use Types Packs/Day Years [...]
--- OUTSIDE RECORDS SUMMARY | 2025-10-02 16:11 | XMS_ITS | Encounter Summary ---
Author Organization [facility] Address [address] [place] [address] Care Team Providers Care Tester Sound Name Role Phone Unavailable Primary Care Provider Unavailabl e Encounter Details Date Type Department Care Team (Late st Contact Info) Description 04/13/2021 Lab Requisition [facility] [address] [place] [address] Maggie Quiroga MD [address] [place], [place] [id number] Illness, unspecified Social History Tobacco Use Types [...] Final Diagnosis URINE, VOIDED, THIN PREP, CYTOLOGY (OSC:[id number]; 04/09/2021): - Negative for high grade urothelial carcinoma 04/13/2021 1:54 PM CDT [facility] at 1354 CDT Microscopic Description and Comment Microscopic examination substantiates the final diagnosis. 04/13/2021 1:54 PM CDT [facility] Clinical History URGENCY 04/13/2021 1:54 PM CDT [facility] Materials Received Prepared slide received from [facility] [id number]. All material will be returned. 04/13/2021 1:54 PM CDT [facility] Disclaimer The performance characteristics of all immunohistochemical and indirect immunofluorescence stains (if any) cited in this report were determined by the Histopathology Laboratory of [facility]. Some of these tests were developed by [...] attending (teaching) pathologist. 04/13/2021 1:54 PM CDT [facility] Case Report Surgical Pathology Report Case: [id number] Authorizing Provider: Maggie Quiroga MD Collected: 04/09/2021 12:53 PM Ordering Location: [facility] Received: 04/13/2021 12:54 PM Pathologist: Brandan Gilmore MD Specimen: Slide Consultation 04/13/2021 1:54 PM CDT [facility] Embedded Images 04/13/2021 1:54 PM CDT [facility] Pathology/Cytolo gy SURGICAL PATHOLOGY CONSULTATION AND REPORT ON REFERRED SLIDES PREPARED ELSEWHERE / Unknown 04/09/2021 12:53 PM CDT 04/13/2021 12:54 PM CDT Maggie Quiroga MD LAB - PATHOLOGY/CYTOLOGY ORDERAB LES Final Result [facility] [address] [place] [address], [facility] [phone] documented in this encounter Visit Diagnoses Diagnosis Illness, unspecified documented in this encounter
--- OUTSIDE RECORDS SUMMARY | 2025-10-02 16:11 | XMS_ITS | Clinical Summary ---
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 Role Phone Jaxon Franco DO Primary [...] 1 capsule by mouth daily Active omega 2-irx-pef-fish oil 910 mg-330 mg- 450 mg-1,400 mg [...] pain 12/27/2024 Coronary artery disease invo lving wainwright coronary artery of wainwright heart without angina pectoris 12/27/2024 IBAN (obstructive sleep apnea) 09/03/2024 Chronic fatigue 05/10/2024 Hypersomnolence 05/10/2024 Abnormal ECG 01/21/2022 History of stroke 01/21/2022 Hyperlipidemia LDL goal <70 01/21/2022 Essential hypertension 01/21/2022 Exertional chest pain 01/21/2022 Syncope and collapse 01/21/2022 Cardiomegaly 01/21/2022 Other ill-defined heart diseases 01/21/2022 Encounters Date Type Department Care Team Description 09/12/2025 Results Follow-Up [facility] [address] [place] [address] Mar Padron DNP PET/CT FDG Skull to Thigh 09/10/2025 7:58 AM CDT - 09/10/2025 11:59 PM CDT Hospital Encounter [facility] [address] [place] [address] Discharge Disposition: Discharge to home or self care 09/10/2025 7:58 AM CDT - 09/10/2025 11:59 PM CDT Hospital Encounter [facility] [address] [place] [address] Smoldering myeloma Discharge Disposition: Discharge to home or self care 08/22/2025 8:45 AM CDT Office Visit [facility] Medicine Bone Marrow Transplant [address] [place] [address] Mar Padron DNP MGUS (monoclonal gammopathy of unknown significance) (Primary Dx); Smoldering myeloma 08/22/2025 8:15 AM CDT Lab [facility] [address] [place] [address] Smoldering myeloma; MGUS (monoclonal gammopathy of unknown significance) 07/17/2025 2:04 PM CDT - 07/17/2025 11:59 PM CDT Hospital Encounter [facility] [address] [place] [address] Tear of right rotator cuff, unspecified tear extent, unspecified whether traumatic Discharge Disposition: Discharge to home or self care from Last 3 Months Family History Medical [...] on file 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 The study was interpreted on the Ecinity workstation. The mean liver SUV (reported for quality process lead purposes) is 2.5. The total scanned area [...] FDG-PET/CT IMAGING DATE OF STUDY: 09/10/2025 SCANNER: [facility] RADIOPHARMACEUTICAL: 14.62 mCi F-18 Fluorodeoxyglucose (FDG) [...] obtained. The study was interpreted on the Ecinity workstation. The mean liver SUV (reported for quality process lead purposes) is 2.5. The total scanned area [...] signed by: Cristi Samuels MD Mar Padron DNP IMG PET PROCEDURES Fi nal Result * Immunotyping, serum with interpretation (08/22/2025 8:04 AM CDT) Immunosubtraction Please see comment Comment: IGG KAPPA PARAPROTEIN Reviewed and signed by Mela Galvez MD, PhD 08/24/2025 Blood 08/22/2025 8:04 AM CDT 08/22/2025 9:13 AM CDT us Baudilio Marte MD LAB BLOOD ORDER DEVIN Final Result NISHA [facility] [place] [address] * eGFR (08/22/2025 8:04 AM CDT) eGFR 74 >=60 mL/min/1. 73 m2 Comment: [...] MD LAB BLOOD ORDER DEVIN Final Result NISHA [facility] [place] [address] * Differential, auto (08/22/2025 8:04 AM CDT) Neutrophil abs 5.03 1.50 - 6.50 K/cumm Comment:Testing performed by : [facility], [address] [place] [address] Imm gran abs 0.02 0.00 - 0.10 K/cumm [facility] Lymphocyte abs 1.53 0.80 - 3.30 K/cumm [facility] Monocyte abs 0.73 0.20 - 0.80 K/cumm [facility] Eosinophil abs 0.22 0.00 - 0.50 K/cumm [facility] Basophil abs 0.08 0.00 - 0.10 K/cumm [facility] Neutrophil pct 66.0 % [facility] Comment: Interpretive Data Percent cell count reference ranges are not reported, since discordance with absolute values may lead to misinterpretation of CBC data. Current Interpretive Data was last revised on 2018. Imm gran pct 0.3 % [facility] Comment: Interpretive Data Percent cell count reference ranges are not reported, since discordance with absolute values may lead to misinterpretation of CBC data. Current Interpretive Data was last revised on 2018. Lymphocyte pct 20.1 % [facility] Comment: Interpretive Data Percent cell count reference ranges are not reported, since discordance with absolute values may lead to misinterpretation of CBC data. Current Interpretive Data was last revised on 2018. Monocyte pct 9.6 % [facility] Comment: Interpretive Data Percent cell count reference ranges are not reported, since discordance with absolute values may lead to misinterpretation of CBC data. Current Interpretive Data was last revised on 2018. Eosinophil pct 2.9 % [facility] Comment: Interpretive Data Percent cell count reference ranges are not reported, since discordance with absolute values may lead to misinterpretation of CBC data. Current Interpretive Data was last revised on 2018. Basophil pct 1.1 % [facility] Comment: Interpretive Data Percent cell count reference ranges are not reported, since discordance with absolute values may lead to misinterpretation of CBC data. Current Interpretive Data was last revised on 2018. Blood 08/22/2025 8:04 AM CDT 08/22/2025 8:04 AM CDT Baudilio Matre MD LAB BLOOD ORDER DEVIN Final Result Performing Organization Address [facility] de Phone Number [facility] Department [place] [address] * (ABNORMAL) Immunoglobulin free light chains (08/22/2025 8:04 AM CDT) Nooksack/Lambda ratio [facility] 1.21 0.26 - 1.65 Comment: Interpretive Data The Binding Site FreeLite assay procedure was used. Results from different manufacturers or methods may not be comparable. Serial testing should be performed using the same methods and instrumentation. Current Interpretive Data was last revised on 2024. [place]sack free light chain [facility] 2.85(H) 0.33 - 1.94 mg/dL [facility] Comment: Interpretive Data The Binding Site FreeLite assay procedure was used. Results from different manufacturers or methods may not be comparable. Serial testing should be performed using the same methods and instrumentation. Current Interpretive Data was last revised on 2024. Lambda free light chain [facility] 2.35 0.57 - 2.63 mg/dL [facility] Comment: Interpretive Data The Binding Site FreeLite assay procedure was used. Results from different manufacturers or methods may not be comparable. Serial testing should be performed using the same methods and instrumentation. Current Interpretive Data was last revised on 2024. Blood 08/22/2025 8:04 AM CDT 08/22/2025 9:13 AM CDT Baudilio Marte MD LAB BLOOD ORDER DEVIN Final Result Performing Organization Address City/[facility]/ZIP Co de Phone Number [facility] Department [place] [address] * (ABNORMAL) CBC with auto differential (08/22/2025 8:04 AM CDT) [facility] WBC 7.61 3.80 - 9.90 K/cumm Comment:Testing performed by : [facility], [address] [place] [address] Hgb 16.2 13.0 - 17.5 g/dL [facility] Comment:Testing performed by : [address] [address] Hct 47.9 38.9 - 50.3 % [facility] Comment:Testing performed by : [address] [address] Plt 291 150 - 400 K/cumm [facility] Comment:Testing performed by : [address] [address] MPV 8.9(L) 9.1 - 12.3 fL [facility] RBC 5.25 4.30 - 5.80 M/cumm [facility] MCV 91.2 81.3 - 96.4 fL [facility] MCH 30.9 27.1 - 33.3 pg [facility] MCHC 33.8 32.3 - 35.7 g/dL [facility] RDW CV 12.6 11.1 - 14.9 % [facility] RDW SD 41.6 35.7 - 48.1 fL [facility] NRBC abs 0.00 0.00 - 0.01 K/cumm [facility] ANC Prelim 5.03 1.50 - 6.50 K/cumm [facility] Comment: Interpretive Data The rapid ANC is a preliminary automated count and may vary from the final ANC (Neut Abs) reported in the WBC differential that follows. Current interpretive data was last revised 2025. Blood 08/22/2025 8:04 AM CDT 08/22/2025 8:04 AM CDT us Baudilio Marte MD LAB BLOOD ORDER DEVIN Final Result [facility] [place] [address] * (ABNORMAL) Protein electrophoresis with reflex, serum with interpretation (08/22/2025 8:04 AM CDT) Pathologist [facility] Protein, sr 7.0 6.2 - 8.2 g/dL Albumin 4.4 3.2 - 5.0 g/dL [facility] Alpha-1 globulin 0.4 0.2 - 0.4 g/dL [facility] Alpha-2 globulin 0.5 0.5 - 1.0 g/dL [facility] Beta-1 globulin 0.5 0.3 - 0.6 g/dL [facility] Beta-2 globulin 0.4 0.2 - 0.6 g/dL [facility] Gamma globulin 0.8 0.5 - 1.7 g/dL [facility] Rstr Pk Gamma 0.2(H) 0.0 - 0.0 g/dL [facility] SPEP interp Please see comment [facility] Comment: Abnormal restricted peak in Gamma region Electrophoretic pattern appears similar to previous sample 05-03-25 See immunotyping for further information Reviewed and signed by Mela Galvez MD, PhD 08/24/2025 Immunotyping See Immunotyping Results [facility] Blood 08/22/2025 8:04 AM CDT 08/22/2025 9:13 AM CDT Baudilio Marte MD LAB BLOOD ORDER DEVIN Final Result NISHA [facility] [place] [address] * Lactate dehydrogenase (LD) (08/22/2025 8:04 AM CDT) [facility] Lactate dehydrogenase (LDH) 129 100 - 250 Units/L Comment:Testing performed by : [facility], [address] [place] [address] Blood 08/22/2025 8:04 AM CDT 08/22/2025 8:04 AM CDT us Baudilio Marte MD LAB BLOOD ORDER DEVIN Final Result Performing Organization Address [facility] de Phone Number [facility] [place] [address] * IgA (08/22/2025 8:04 AM CDT) Immunoglobulin A 357 70 - 400 mg/dL Blood 08/22/2025 8:04 AM CDT 08/22/2025 9:13 AM CDT us Baudilio Marte MD LAB BLOOD ORDER DEVIN Final Result Performing Organization Address [facility] de Phone Number [facility] [place] [address] * (ABNORMAL) IgM (08/22/2025 8:04 AM CDT) Immunoglobulin M 29(L) 40 - 230 mg/dL Blood 08/22/2025 8:04 AM CDT 08/22/2025 9:13 AM CDT us Baudilio Marte MD LAB BLOOD ORDER DEVIN Final Result Performing Organization Address [facility] de Phone Number [facility] [place] [address] * IgG (08/22/2025 8:04 AM CDT) Immunoglobulin G 947 700 - 1,600 mg/dL Blood 08/22/2025 8:04 AM CDT 08/22/2025 9:13 AM CDT Baudilio Marte MD LAB BLOOD ORDER DEVIN Final Result Performing Organization Address City/[facility] Co de Phone Number [facility] [place] [address] * Comprehensive metabolic panel (08/22/2025 8:04 AM CDT) Sodium 142 135 - 145 mmol/L Comment:Testing performed by : [facility], [address] [facility] [address] Potassium, pl 4.7 3.3 - 4.9 mmol/L [facility] Chloride 103 97 - 110 mmol/L [facility] CO2 32 22 - 32 mmol/L [facility] Anion gap 7 2 - 15 mmol/L [facility] BUN 13 6 - 25 mg/dL [facility] Creatinine 1.10 0.80 - 1.30 mg/dL [facility] Glucose 81 70 - 199 mg/dL [facility] Comment: Interpretive Data Fasting glucose >/= 126 [...] 2022. Calcium 9.6 8.5 - 10.3 mg/dL [facility] Bilirubin, total 0.5 0.1 - 1.2 mg/dL [facility] Protein, pl 7.2 6.5 - 8.5 g/dL [facility] Albumin 4.4 3.5 - 5.0 g/dL [facility] Alk phos 53 40 - 130 Units/L [facility] ALT 18 7 - 55 Units/L [facility] AST 16 10 - 50 Units/L [facility] Blood 08/22/2025 8:04 AM CDT 08/22/2025 8:04 AM CDT Baudilio Marte MD LAB BLOOD ORDER DEVIN Final Result [facility] [place] [address] * MRI Shoulder Right WO Contrast (07/17/2025 [...] Lc Madrid M.D. JA: MARIE Report ID: [id number] Reading Location: [id number] Procedure Note Lc Madrid MD - 07/17/2025 [...] Lc Madrid M.D. JA: MARIE Report ID: [id number] Reading Location: [place] [address] Ethan Moya MD IMG MRI PROCEDURES Final R esult from Last 3 Months Insurance [facility] MEDICARE HMO [employer] MEDICARE HMO Care Teams Supervisor Fish Processing Relationship Specialty Start Date End Date Jaxon Franco DO PCP - General Internal Medicine 11/09/22 Baudilio Marte MD Consulting Physician Medical Oncology 07/09/24
--- OUTSIDE RECORDS SUMMARY | 2025-10-02 16:11 | XMS_ITS | Encounter Summary ---
Author Organization [facility] Address [address] [place] [address] Phone Care Team Providers Care Guest Services Representative Name Role Phone Jaxon Franco DO Primary Care Provider Baudilio Marte MD Unavailable Encounter Details Date Type Department Care Team (Late st Contact Info) Description 09/12/2025 Results Follow-Up [facility] [address] [place] [address] Mar Padron, 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 Shipping Easy message sent. documented in this encounter Plan of Treatment Not on file documented as of this encounter Visit Diagnoses Not on filedocumented in this encounter Care Teams Guest Services Representative Relationship Specialty Start Date End Date Jaxon Franco DO PCP - General Internal Medicine 11/09/22 Baudilio Marte MD Consulting Physician Medical Oncology 07/09/24 documented as of this encounter
== END 2025-10-02 14:40 | disposition home or self-care (01) ==
PROVIDERS: PCP Internal Medicine; Visit Provider Orthopaedic Surgery
PROC: (CPT 29805; principal; 2025-10-02 10:30)
DX: M75.121 Complete rotator cuff tear or rupture of right shoulder, not specified as traumatic (principal); M75.41 Impingement syndrome of right shoulder; M67.813 Other specified disorders of tendon, right shoulder; M19.011 Primary osteoarthritis, right shoulder; G89.18 Other acute postprocedural pain; I11.9 Hypertensive heart disease without heart failure; E29.1 Testicular hypofunction; I51.89 Other ill-defined heart diseases; Z79.82 Long term (current) use of aspirin; Z79.899 Other long term (current) drug therapy; Z98.890 Other specified postprocedural states; Z82.49 Family history of ischemic heart disease and other diseases of the circulatory system
CPT/HCPCS: 64415; 29827; 29826; J0690; A9270; C1713; J0166; J1100; J1885; J2003; J2250; J2405; J2704; J3010; J7120